=== PATIENT | male | born 1990 | race Caucasian/White ===

== ENCOUNTER 2019-10-23 15:37 | Inpatient (IN) | payer OTHER ==
[2019-10-23] MEDS ORDERED: PROPOFOL 1,000,000 MCG/100 ML VIAL ONE (16:35)
--- NOTE | 2019-10-23 16:35 | PDOC ---
Documentation entered by Myrna Rivas SCRIBE, acting as scribe for Darin Marsh MD. Darin Marsh MD: This documentation has been prepared by the chrisibeRob Ana, SCRIBE, under my direction and personally reviewed by me in its entirety. I confirm that the documentation accurately reflects all work, treatment, procedures, and medical decision making performed by me. Attending Attestation - Resident Resident Name: LexLeo jensen - ED Attending Attestation I have performed the following: I have examined & evaluated the patient, The case was reviewed & discussed with the resident, I agree w/resident's findings & plan, Exceptions are as noted - HPI HPI: 10/23/19 16:14 Patient is a 29 year old male with unknown PMH presents to ED, brought in by friend, for unresponsiveness. Pt was driven to ED by friend, who states that they were smoking marijuana together. Friend is unsure if he took anything else but states that about 15 minutes prior to arrival to ED, pt became unresponsive and difficult to arouse. Pt was encountered in friend's car in ambulance bay, cyanotic, apneic, unresponsive. Pt was pulled from car, lifted onto stretcher, and taken into resus room. Pt was initially bradycardic to 30s, with unobtainable O2 sat. Pt given rescue breaths via BVM. Narcan 0.4mg IV given x2. Repeat vitals after narcan administration - HR 130, O2 sat 100%, RR 18 No improvement in mental status after Narcan administration Pt intubated for airway protection given significant secretions and vomit in mouth. - Physicial Exam PE: 10/23/19 16:15 See resident exam. - Critical Care Time Total Critical Care Time: 60 Critical Care Statement: The care of this patient involved high complexity decision making to prevent further life threatening deterioration of the patient's condition and/or to evaluate & treat vital organ system(s) failure or risk of failure. - Medical Decision Making 10/23/19 16:55 29 M brought in by friend after becoming unresponsive. Suspect Opiate overdose given good response to narcan. - Labs - Tox screen - Intubated on vent - Propofol for sedation - CT head Discharge - Discharge Information Problems reviewed: Yes Clinical Impression/Diagnosis: Apnea for greater than 15 seconds Overdose of opiate or related narcotic Qualifiers: Encounter type: initial encounter Injury intent: undetermined intent Qualified Code(s): T40.604A - Poisoning by unspecified narcotics, undetermined, initial encounter Condition: Guarded - Follow up/Referral - Patient Discharge Instructions - Post Discharge Activity
[2019-10-23] MEDS ORDERED: PROPOFOL 1,000,000 MCG/100 ML VIAL IVPB SCH (16:45)
--- NOTE | 2019-10-23 16:50 | PDOC ---
History of Present Illness - General Chief Complaint: Overdose Stated Complaint: SEIZURE Time Seen by Provider: 10/23/19 16:09 History Source: EMS, Friend Exam Limitations: Clinical Condition, Intubated, Unresponsive - History of Present Illness Initial Comments: 10/23/19 16:42 HPI: 29 yo M brought in unresponsive, apneic bradycardic to 30s, level 1, responded to 0.4 Narcan x2 with return of spontaneous respiration. Patient still unable to protect his airway, vomiting, intubated. Brought in by friend who reported he has a history of opiate abuse, states they smoked marijuana earlier and she was unaware if he took anything else. Past History - Medical History Allergies/Adverse Reactions: Allergies Allergy/AdvReac Type Severity Reaction Status Date / Time No Allergy Information Allergy Verified 10/23/19 15:58 Available Home Medications: Ambulatory Orders NK [No Known Home Medication] 10/23/19 COPD: No - Psycho-Social/Smoking History Smoking History: Smoker current status UNK Have you smoked in the past 12 months: No Information on smoking cessation initiated: No - Substance Abuse Hx (Audit-C & DAST Scrn) How often the patient has a drink containing alcohol: Never Score: In Men: 4 or > Positive; In Women: 3 or > Positive: 0 Screen Result (Pos requires Nsg. Audit-10AR): Negative In the last yr the pt used illegal drug/Rx for NonMed reason: Yes Score: Yes response is considered Positive: 1 Screen Result (Positive result requires Nsg. DAST-10): Positive Review of Systems - Review of Systems Able to Perform ROS?: No (clinical condition) *Physical Exam - Vital Signs Last Vital Signs Temp Pulse Resp BP Pulse Ox 35 L 6 L 164/88 80 L 10/23/19 15:58 10/23/19 15:58 10/23/19 15:58 10/23/19 15:58 - Physical Exam 10/23/19 16:50 Vitals reviewed, apneic, hypoxic, bradycardic on arrival GEN: Critically ill, apneic, required immediate intervention, obese, vomiting s/p narcan HEENT: NCAT, EOMI. Sclera anicteric. No facial asymmetry. Moist mucous membranes. Trachea midline. CV: RRR, S1/S2, no murmurs / rubs / gallops appreciated. LUNG: Not protecting his airway, intubated, with bilateral BS afterwards, concern for aspiration event on arrival. GI: Obese, NTND, +BS, no guarding, no rebound. No masses. EXTREMITIES: 2+ distal pulses. No clubbing / cyanosis / edema. No gross deform ity in any extremity. SKIN: Warm, dry, no rashes appreciated, non-jaundiced. PSYCH: Unable to assess. NEURO: Unable to assess. ED Treatment Course - LABORATORY CBC & Chemistry Diagram: 10/23/19 16:30 10/23/19 16:30 - ADDITIONAL ORDERS Additional order review: Laboratory Results 10/23/19 16:20 POC Glucometer 375 10/23/19 16:20 POC Glucometer 375 - RADIOLOGY Radiology Studies Ordered: Category Date Time Status CXRPORT [CHEST X-RAY PORTABLE*] [RAD] Stat Radiology 10/23/19 16:12 Ordered Medical Decision Making - Medical Decision Making 10/23/19 16:53 29 yo M brought in unresponsive, apneic bradycardic to 30s, level 1, responded to 0.4 Narcan x2 with return of spontaneous respiration. History notable for opiate abuse, response to narcan. Concerning for overdose. Patient intubated for airway protection. - CBC, CMP, Troponin, UTox, Acetaminophen, Salicylates, ABG, Lactic acid - Vent settings per order, appreciate respiratory assistance - Propofol for sedation - Post intubation CXR - EKG - NCHCT Dispo: Patient will require ICU admission 10/23/19 19:16 Patient admitted to ICU. Endorsed to Dr. Gregory who will follow up sedation needs / any clinical changes while in the ED. Discharge - Discharge Information Problems reviewed: Yes Clinical Impression/Diagnosis: Apnea for greater than 15 seconds Overdose of opiate or related narcotic Qualifiers: Encounter type: initial encounter Injury intent: undetermined intent Qualified Code(s): T40.604A - Poisoning by unspecified narcotics, undetermined, initial encounter Condition: Guarded - Admission Yes - Follow up/Referral - Patient Discharge Instructions - Post Discharge Activity
[2019-10-23 17:00] LABS: ARTERIAL BLD GAS O2 SATURATION 83.1 mmHg (95-98); ARTERIAL BLOOD GAS BASE EXCESS -11.6 mmol/L (-2-2); ARTERIAL BLOOD GAS PO2 64.1 mmHg (80-100)
[2019-10-23 17:05] LABS: HEMATOCRIT 46.9 % (35.4-49); HEMOGLOBIN 15.1 GM/dL (11.7-16.9); MCH 28.8 pg (25.7-33.7); MCHC 32.1 g/dl (32.0-35.9); MEAN CELL VOLUME 89.6 fl (80-96); MEAN PLT VOLUME 10.6 fl (7.5-11.1); PLATELET COUNT 257 K/MM3 (134-434); RBC 5.23 M/mm3 (4.00-5.60); RDW 14.9 % (11.9-15.9); WHITE BLOOD COUNT 10.6 K/mm3 (4.0-10.0)
[2019-10-23 17:06] LABS: ALLENS TEST POSITIVE
[2019-10-23 17:07] LABS: ARTERIAL BLOOD GAS pH 7.091 (7.350-7.450); VENT MODE A/C; VENT RATE 14
[2019-10-23] MEDS ORDERED: ROCURONIUM BROMIDE 100 MG/10 ML VIAL ONE (17:16)
[2019-10-23] MEDS ORDERED: MIDAZOLAM IN 0.9 % SOD.CHLORID 1 MG/1 ML PLAST..BAG ONE (17:21)
[2019-10-23 17:31] LABS: ALBUMIN 4.1 g/dl (3.4-5.0); BILIRUBIN,TOTAL 0.4 mg/dL (0.2-1); BLOOD UREA NITROGEN 17.2 mg/dL (7-18); CALCIUM 8.9 mg/dL (8.5-10.1); CREATININE 1.6 mg/dL (0.55-1.3); POTASSIUM 5.3 mmol/L (3.5-5.1); TOT PROT 8.1 g/dl (6.4-8.2)
[2019-10-23] MEDS ORDERED: SODIUM CHLORIDE 0.9% 500 ML INFUS.BAG IV ONE (17:55)
[2019-10-23 17:57] LABS: METHADONE, UR NEGATIVE ng/ml (CUTOFF=300); PHENCYCLIDINE,URINE NEGATIVE ng/ml (CUTOFF=25); URINE BARBITURATES NEGATIVE ng/ml (CUTOFF=200)
[2019-10-23 17:58] LABS: URINE AMPHETAMINES NEGATIVE ng/ml (CUTOFF=500); URINE BENZODIAZEPINES NEGATIVE ng/ml (CUTOFF=200)
[2019-10-23 18:00] LABS: COCAINE, UR POSITIVE ng/ml (CUTOFF=300)
[2019-10-23 18:01] LABS: OPIATES, URI POSITIVE ng/ml (CUTOFF=300)
[2019-10-23] MEDS ORDERED: MIDAZOLAM HCL 5 MG/1 ML Single Dose Vial IVPUSH ONE (18:24)
[2019-10-23] MEDS ORDERED: MIDAZOLAM 100 MG in SODIUM CHLORIDE 100 ML IVPB SCH (18:45)
[2019-10-23] MEDS ORDERED: SODIUM CHLORIDE 1,000 ML IV SCH (20:45)
--- NOTE | 2019-10-23 20:52 | CONSULT ---
Consultation: REQUESTING PROVIDER: Dr. Marsh CONSULT REQUEST: We have been asked to medically evaluate this patient for admission for ICU for opiate overdose. HISTORY OF PRESENT ILLNESS: 29 YO M with H polysubstance use (marijuana, opiate, cocaine) disorder was brought to the ED by his friend for Altered mental response. THe pt's friend endorsed that the patient has a history of opiate use disorder and they smoked marijuana earlier. Pt was unresponsive. In the ED, pt was apniec and bradycardic to 30s. This resolved after 0.4 Narcan X2. Patient was intubated for airway protection. Admitted to the ICU for opiate overdose. REVIEW OF SYSTEMS: Unable to attain because patient is intubated and sedated. PHYSICAL EXAMINATION Vital Signs - 24 hr 10/23/19 10/23/19 10/23/19 15:58 16:05 16:15 Temperature 98.1 F Pulse Rate 35 L Pulse Rate [ 120 H Apical] Respiratory 18 18 20 Rate Blood Pressure 164/88 Blood Pressure 155/75 [Left Arm] O2 Sat by Pulse 98 89 L 88 L Oximetry (%) 10/23/19 10/23/19 10/23/19 16:30 17:00 17:30 Temperature Pulse Rate Pulse Rate [ 125 H 108 H 108 H Apical] Respiratory 18 18 18 Rate Blood Pressure Blood Pressure 160/82 100/72 98/62 [Left Arm] O2 Sat by Pulse 88 L 88 L 95 Oximetry (%) 10/23/19 10/23/19 10/23/19 17:58 18:45 19:16 Temperature Pulse Rate Pulse Rate [ 106 H 98 H Apical] Respiratory 18 18 14 Rate Blood Pressure Blood Pressure 95/70 149/135 H [Left Arm] O2 Sat by Pulse 98 100 Oximetry (%) GENERAL: intubated and sedated HEENT: NC, horizontal scars below his eyebrows, pinpoint pupils, dry mucous membranes LUNGS: Breath sounds equal, clear to auscultation bilaterally. No wheezes, and no crackles. No accessory muscle use. HEART: Regular rate and rhythm, normal S1 and S2 without murmur, rub or gallop. ABDOMEN: obese, Soft, nontender, not distended, normoactive bowel sounds, no guarding UPPER EXTREMITIES: 2+ pulses, warm, well-perfused. No cyanosis. No clubbing. Cap refill <2 seconds. No peripheral edema. Scars in shape of alphabet letters on b/l hands and forearms LOWER EXTREMITIES: 2+ pulses, warm, well-perfused. No calf tenderness. No peripheral edema. Laboratory Results - last 24 hr 10/23/19 10/23/19 10/23/19 16:20 16:30 16:30 WBC RBC Hgb Hct MCV MCH MCHC RDW Plt Count MPV Anticoagulation Therapy Puncture Site Patient Temperature ABG pH ABG pCO2 ABG pO2 ABG HCO3 ABG O2 Sat (Measured) ABG O2 Content ABG Base Excess Huang Test Patient On Oxygen O2 Delivery Device Oxygen Flow Rate Vent Mode Vent Rate Mechanical Rate PEEP Pressure Support Vent Sodium Potassium Chloride Carbon Dioxide Anion Gap BUN Creatinine Est GFR (CKD-EPI)AfAm Est GFR (CKD-EPI)NonAf POC Glucometer 375 Random Glucose Lactic Acid 8.8 H* Calcium Total Bilirubin AST ALT Alkaline Phosphatase Troponin I < 0.02 Total Protein Albumin Opiates Screen Methadone Screen Barbiturate Screen Phencyclidine Screen Ur Amphetamines Screen MDMA (Ecstasy) Screen Benzodiazepines Screen Cocaine Screen U Marijuana (THC) Screen 10/23/19 10/23/19 10/23/19 16:30 16:30 16:40 WBC 10.6 H RBC 5.23 Hgb 15.1 Hct 46.9 MCV 89.6 MCH 28.8 MCHC 32.1 RDW 14.9 Plt Count 257 MPV 10.6 Anticoagulation Therapy No Result Required. Puncture Site Right radial Patient Temperature No Result Required. ABG pH 7.091 L* ABG pCO2 64.80 H ABG pO2 64.1 L ABG HCO3 19.3 L ABG O2 Sat (Measured) 83.1 L ABG O2 Content No Result Required. ABG Base Excess -11.6 L Huang Test Positive Patient On Oxygen Yes O2 Delivery Device Mech vent Oxygen Flow Rate 100 Vent Mode A/c Vent Rate 14 Mechanical Rate No Result Required. PEEP 5.0 Pressure Support Vent 500 Sodium 138 Potassium 5.3 H Chloride 105 Carbon Dioxide 20 L Anion Gap 14 BUN 17.2 Creatinine 1.6 H Est GFR (CKD-EPI)AfAm 66.02 Est GFR (CKD-EPI)NonAf 56.96 POC Glucometer Random Glucose 335 H Lactic Acid Calcium 8.9 Total Bilirubin 0.4 AST 27 ALT 53 Alkaline Phosphatase 108 Troponin I Total Protein 8.1 Albumin 4.1 Opiates Screen Methadone Screen Barbiturate Screen Phencyclidine Screen Ur Amphetamines Screen MDMA (Ecstasy) Screen Benzodiazepines Screen Cocaine Screen U Marijuana (THC) Screen 10/23/19 17:05 WBC RBC Hgb Hct MCV MCH MCHC RDW Plt Count MPV Anticoagulation Therapy Puncture Site Patient Temperature ABG pH ABG pCO2 ABG pO2 ABG HCO3 ABG O2 Sat (Measured) ABG O2 Content ABG Base Excess Huang Test Patient On Oxygen O2 Delivery Device Oxygen Flow Rate Vent Mode Vent Rate Mechanical Rate PEEP Pressure Support Vent Sodium Potassium Chloride Carbon Dioxide Anion Gap BUN Creatinine Est GFR (CKD-EPI)AfAm Est GFR (CKD-EPI)NonAf POC Glucometer Random Glucose Lactic Acid Calcium Total Bilirubin AST ALT Alkaline Phosphatase Troponin I Total Protein Albumin Opiates Screen Positive A* Methadone Screen Negative Barbiturate Screen Negative Phencyclidine Screen Negative Ur Amphetamines Screen Negative MDMA (Ecstasy) Screen Negative Benzodiazepines Screen Negative Cocaine Screen Positive A* U Marijuana (THC) Screen Positive A* Active Medications Generic Name Dose Route Start Last Admin Trade Name Freq PRN Reason Stop Dose Admin Chlorhexidine Gluconate 1 applic 10/23/19 22:00 Hibiclens For Decolonization - TP HS JAILYN Heparin Sodium (Porcine) 5,000 unit 10/23/19 22:00 Heparin - SQ TID JAILYN Propofol 1,000,000 mcg in 100 mls @ 3.538 mls/hr 10/23/19 16:45 10/23/19 19:01 Diprivan - IVPB 0 mcg/kg/min TITR JAILYN 0 mls/hr Titration Protocol 5 MCG/KG/MIN Midazolam HCl 100 mg/ Sodium 100 mls @ 1 mls/hr 10/23/19 18:45 10/23/19 19:00 Chloride IVPB 10 mg/hr TITR JAILYN 10 mls/hr Titration Protocol 1 MG/HR Ceftriaxone Sodium 1 gm/ 50 mls @ 100 mls/hr 10/23/19 20:30 Dextrose IVPB DAILY JAILYN Doxycycline Hyclate 100 mg/ 100 mls @ 100 mls/hr 10/23/19 22:00 Dextrose IVPB BID JAILYN Sodium Chloride 1,000 mls @ 75 mls/hr 10/23/19 20:45 Normal Saline - IV 10/24/19 06:00 ASDIR JAILYN Insulin Aspart 1 vial 10/23/19 22:00 Novolog Vial Sliding Scale - SQ ACHS JAILYN Protocol Mupirocin 1 applic 10/23/19 22:00 Bactroban Ointment (For Decolonization) - NS 10/28/19 21:59 BID [facility] Pantoprazole Sodium 40 mg 10/24/19 10:00 Protonix Iv IVPUSH DAILY [facility] ASSESSMENT/PLAN: 29 YO M with PMH polysubstance use (marijuana, opiate, cocaine) disorder was brought to the ED by his friend for Altered mental response. Admitted to the ICU for opiate overdose. #Neuro intubated and sedated no acute issues Pulm -Volume A/C: rate 18, TV 450, PEEP 5, FIO2 100%, Plateau 22. Sedated with midazolam 10 mg/h -ABG: pH 7.091, PCO2 64.8, pO2 64.1, HCO3 19.3 -F/u ABG Cardio -EKG: Sinus tachycardia, 128 bpm, QTC 443, MI interval 154 -trop <0.02 -Utox show cocaine. Avoid betablockers to prevent unopposed alpha ID -utox +: opiates, cocaine, marijuana -afebrile, WBC 10.6 -CXR: congestive changes and some atelectatic/infiltrative findings with minimal pleural fluid -for suspected CAP ceftriaxone 1 gm daily & doxycyline 100 mg IVPB BID. Doxycyline because QTC is borderline at 443. -f/u blood culture -f/u UA #HemeOnc WBC elevated at 10.6. Likely 2/2 CAP PNA will trend Renal -Cr 1.6 -NS@75 ml/h -Marlys -lactic acid 8.8. f/u lactic acid -f/u CK Addiction -utox +: opiates, cocaine, marijuana -f/u Dr Zavala consult #GI -pantoprazole 40 mg IV push daily Endo glucose elevated at 335. ISS/BGM #FEN NS@75 ml/h monitor lytes NPO #DVT PPX heparin 5000 TID SQ due to patient's elevated Cr #Lines Marlys (10/22) #DISPO maintain ICU Dispo: We will continue to follow the patient. Thank you for this consultative opportunity. ATTENDING PHYSICIAN STATEMENT I saw and evaluated the patient. I reviewed the resident's note and discussed the case with the resident. I agree with the resident's findings and plan as documented. SUBJECTIVE: OBJECTIVE: ASSESSMENT AND PLAN:
[2019-10-23] MEDS ORDERED: HEPARIN NA (PORCINE) 5,000 UNITS/ML 1ML VIAL ONE (21:05)
[2019-10-23] MEDS ORDERED: CEFTRIAXONE 1 GM/50 ML BAG ONE (21:06)
[2019-10-23] MEDS ORDERED: DOXYCYCLINE HYCLATE 100 MG VIAL ONE (21:06)
[2019-10-23] MEDS: DOXYCYCLINE INJECTION 100 MG in DEXTROSE 5%-WATER - 100 ML IVPB SCH (21:28)
[2019-10-23] MEDS: HEPARIN NA (PORCINE) 5,000 UNITS/ML 1ML VIAL SQ SCH (21:28)
[2019-10-23] MEDS: CEFTRIAXONE 1 GM in DEXTROSE 5%-WATER - 50 ML IVPB SCH (21:28)
[2019-10-23] MEDS: INSULIN SLIDING SCALE (NOVOLOG) 1 VIAL SQ SCH (21:28)
[2019-10-23] MEDS ORDERED: CHLORHEXIDINE GLUCONATE 4% CLEANSER FOR DECOLONIZATION TP SCH (22:00)
[2019-10-23] MEDS ORDERED: MUPIROCIN 2% TOPICAL OINTMENT FOR DECOLONIZATION NS SCH (22:00)
[2019-10-23 22:29] LABS: EPI CELLS 35 /uL (0-25.1); HYALINE CASTS 5 /uL (0-3.1); PH,URINE 5.5 (5.0-8.0); URINE APPEARANCE CLEAR; URINE BACTERIA 231 /uL (0-1359); URINE BILIRUBIN NEGATIVE (NEGATIVE); URINE COLOR YELLOW; URINE GLUCOSE (UA) 3+ (NEGATIVE); URINE KETONE NEGATIVE (NEGATIVE); URINE LEUK ESTERASE NEGATIVE (NEGATIVE); URINE NITRITE NEGATIVE (NEGATIVE); URINE PROTEIN 3+ (NEGATIVE); URINE UROBILINOGEN 0.2 mg/dL (0.2-1.0); URINE WBC 18 /uL (0-25.8)
[2019-10-23 22:31] LABS: ALLENS TEST POSITIVE; ARTERIAL BLD GAS O2 SATURATION 97.3 mmHg (95-98); ARTERIAL BLOOD GAS BASE EXCESS -4.1 mmol/L (-2-2); ARTERIAL BLOOD GAS PO2 108.7 mmHg (80-100); ARTERIAL BLOOD GAS pH 7.271 (7.350-7.450)
[2019-10-23 22:32] LABS: VENT MODE A/C; VENT RATE 18
[2019-10-23 22:34] LABS: URINE RBC 19.7 /uL (0-23.9)
[2019-10-24] MEDS ORDERED: MIDAZOLAM IN 0.9 % SOD.CHLORID 1 MG/1 ML PLAST..BAG ONE (01:15)
[2019-10-24] MEDS ORDERED: FENTANYL IVPB 500 MCG/100 ML BAG IVPB SCH ×2 (05:30→06:30)
[2019-10-24] MEDS ORDERED: fentaNYL CITRATE 250 MCG/5 ML VIAL ONE (05:47)
[2019-10-24] MEDS: HEPARIN NA (PORCINE) 5,000 UNITS/ML 1ML VIAL SQ SCH ×3 (06:29→21:42)
[2019-10-24 07:17] LABS: ARTERIAL BLD GAS O2 SATURATION 95.8 mmHg (95-98); ARTERIAL BLOOD GAS BASE EXCESS -2.4 mmol/L (-2-2); ARTERIAL BLOOD GAS PO2 86.4 mmHg (80-100); ARTERIAL BLOOD GAS pH 7.321 (7.350-7.450)
[2019-10-24 07:36] LABS: ALLENS TEST POSITIVE
[2019-10-24 07:37] LABS: VENT MODE A/C; VENT RATE 18
--- NOTE | 2019-10-24 08:02 | PDOC ---
*Physical Exam - Vital Signs Last Vital Signs Temp Pulse Resp BP Pulse Ox 98.6 F 98 H 22 H 103/49 L 100 10/24/19 06:01 10/24/19 06:01 10/24/19 06:54 10/24/19 06:01 10/24/19 06:54 <Jeannine Hazel - Last Filed: 10/24/19 09:01> - Vital Signs Last Vital Signs Temp Pulse Resp BP Pulse Ox 98.6 F 98 H 22 H 103/49 L 100 10/24/19 06:01 10/24/19 06:01 10/24/19 06:54 10/24/19 06:01 10/24/19 06:54 <Michael Acevedo - Last Filed: 10/24/19 11:45> ED Treatment Course - LABORATORY CBC & Chemistry Diagram: 10/24/19 07:15 10/24/19 07:15 - ADDITIONAL ORDERS Additional order review: 10/23/19 10/23/19 16:30 16:20 RBC 5.23 MCV 89.6 MCHC 32.1 RDW 14.9 MPV 10.6 POC Glucometer 375 - Medications Given in the ED: ED Medications Discontinued Medications Generic Name Dose Route Start Last Admin Trade Name Freq PRN Reason Stop Dose Admin Sodium Chloride 1,000 mls @ 75 mls/hr 10/23/19 20:45 10/23/19 21:28 Normal Saline - IV 10/24/19 06:00 75 mls/hr ASDIR JAILYN Administration Fentanyl 500 mcg in 100 mls @ 0.2 mls/hr 10/24/19 06:30 10/24/19 05:50 Sublimaze Ivpb IVPB 5 mcg/hr TITR JAILYN 1 mls/hr Administration Protocol 1 MCG/HR Midazolam HCl 5 mg 10/23/19 18:24 10/23/19 18:26 Versed - IVPUSH 10/23/19 18:25 5 mg ONCE ONE Administration Sodium Chloride 1,000 ml 10/23/19 17:55 10/23/19 18:22 Normal Saline - IV 10/23/19 17:56 1,000 ml ONCE ONE Administration <Jeannine Hazel - Last Filed: 10/24/19 09:01> - LABORATORY CBC & Chemistry Diagram: 10/24/19 07:15 10/24/19 07:15 - ADDITIONAL ORDERS Additional order review: 10/23/19 10/23/19 16:30 16:20 RBC 5.23 MCV 89.6 MCHC 32.1 RDW 14.9 MPV 10.6 POC Glucometer 375 - Medications Given in the ED: ED Medications Discontinued Medications Generic Name Dose Route Start Last Admin Trade Name Cedrick PRN Reason Stop Dose Admin Sodium Chloride 1,000 mls @ 75 mls/hr 10/23/19 20:45 10/23/19 21:28 Normal Saline - IV 10/24/19 06:00 75 mls/hr ASDIR JAILYN Administration Fentanyl 500 mcg in 100 mls @ 0.2 mls/hr 10/24/19 06:30 10/24/19 05:50 Sublimaze Ivpb IVPB 5 mcg/hr TITR JAILYN 1 mls/hr Administration Protocol 1 MCG/HR Midazolam HCl 5 mg 10/23/19 18:24 10/23/19 18:26 Versed - IVPUSH 10/23/19 18:25 5 mg ONCE ONE Administration Sodium Chloride 1,000 ml 10/23/19 17:55 10/23/19 18:22 Normal Saline - IV 10/23/19 17:56 1,000 ml ONCE ONE Administration <Michael Acevedo - Last Filed: 10/24/19 11:45> Medical Decision Making - Critical Care Time Total Critical Care Time (minutes): 30 Critical Care Statement: The care of this patient involved high complexity decision making to prevent further life threatening deterioration of the patient's condition and/or to evaluate & treat vital organ system(s) failure or risk of failure. - Medical Decision Making 10/24/19 09:02 Pt signed out as intubated for airway protection, pending ICU admission. On my assessment, the patient is awake on the vent, but calm and cooperative. Oxygen saturation 100 % on 50% FIO2. Patient changed to CPAP, which he appears to be tolerating. Will start titrating down his sedation and continue to monitor. Will likely extubate if continues to tolerate CPAP/ <Jeannine Hazel - Last Filed: 10/24/19 09:01> - Medical Decision Making 10/23/19 16:53 29 yo M brought in unresponsive, apneic bradycardic to 30s, level 1, responded to 0.4 Narcan x2 with return of spontaneous respiration. History notable for opiate abuse, response to narcan. Concerning for overdose. Patient intubated for airway protection. - CBC, CMP, Troponin, UTox, Acetaminophen, Salicylates, ABG, Lactic acid - Vent settings per order, appreciate respiratory assistance - Propofol for sedation - Post intubation CXR - EKG - NCHCT Dispo: Patient will require ICU admission 10/23/19 19:16 Patient admitted to ICU. Endorsed to Dr. Gregory who will follow up sedation needs / any clinical changes while in the ED. 10/24/19 08:03 - Labs notable for: -ABG pH 7.091 (19:59), 7.271 (23:59), and 7.321 (07:59) -Lactate 8.8 (19:59), 1.2 (23:59) -pCO2 64.8 (19:59), 59.1 (23:59), and 48.1 (07:59) - Patient currently awake, alert, and communicating via writing. He's spontaneously breathing on CPAP. FiO2 lowered to 40% with O2 sat 100% - extubated by ICU team and is admitted <Michael Acevedo - Last Filed: 10/24/19 11:45> Discharge <Jeannine Hazel - Last Filed: 10/24/19 09:01> - Discharge Information Problems reviewed: Yes - Admission Yes <Michael Acevedo - Last Filed: 10/24/19 11:45> - Discharge Information Clinical Impression/Diagnosis: Apnea for greater than 15 seconds Overdose of opiate or related narcotic Qualifiers: Encounter type: initial encounter Injury intent: undetermined intent Qualified Code(s): T40.604A - Poisoning by unspecified narcotics, undetermined, initial encounter Condition: Guarded
[2019-10-24 08:25] LABS: BASO % 0.2 % (0-2.0); EOS % 0.1 % (0-4.5); HEMATOCRIT 40.8 % (35.4-49); HEMOGLOBIN 13.2 GM/dL (11.7-16.9); LYMPH % 14.8 % (8-40); MCH 28.1 pg (25.7-33.7); MCHC 32.4 g/dl (32.0-35.9); MEAN CELL VOLUME 86.9 fl (80-96); MEAN PLT VOLUME 9.6 fl (7.5-11.1); MONO % 4.9 % (3.8-10.2); PLATELET COUNT 196 K/MM3 (134-434); RDW 15.5 % (11.9-15.9); WHITE BLOOD COUNT 11.4 K/mm3 (4.0-10.0)
[2019-10-24 08:41] LABS: CHLORIDE 112 mmol/L (98-107); POTASSIUM 4.2 mmol/L (3.5-5.1); SODIUM 143 mmol/L (136-145)
[2019-10-24 08:47] LABS: ANION GAP 6 MMOL/L (8-16); BLOOD UREA NITROGEN 16.4 mg/dL (7-18); CALCIUM 8.7 mg/dL (8.5-10.1); CO2 25 mmol/L (21-32); CREATININE 1.1 mg/dL (0.55-1.3); GLUCOSE,RANDOM 108 mg/dL (74-106); MAGNESIUM 2.4 mg/dL (1.8-2.4); PHOSPHOROUS 3.5 mg/dL (2.5-4.9)
[2019-10-24] MEDS: INSULIN SLIDING SCALE (NOVOLOG) 1 VIAL SQ SCH ×4 (09:08→21:43)
[2019-10-24] MEDS ORDERED: PANTOPRAZOLE SODIUM 40 MG VIAL IVPUSH SCH (10:00)
[2019-10-24] MEDS ORDERED: DOXYCYCLINE HYCLATE 100 MG VIAL ONE ×2 (11:23→21:29)
[2019-10-24] MEDS ORDERED: CEFTRIAXONE 1 GM/50 ML BAG ONE (11:23)
[2019-10-24] MEDS ORDERED: PANTOPRAZOLE SODIUM 40 MG VIAL ONE (11:24)
--- NOTE | 2019-10-24 11:41 | PN ---
Physical Exam: SUBJECTIVE: Patient was seen and examined today. The patient was alert and following commands. The patient was on cpap on the ventilator and pulling adequate tidal volumes. The patient was subsequently extubated and currently saturating 100% on venti mask. The patient is tolerating oral secretions. Of note, the patient had moderate amounts of pulmonary secretions suctioned prior to extubation. Patient states he feels well. OBJECTIVE: Vital Signs Period Temp Pulse Resp BP Sys/Roland Pulse Ox Last 24 Hr 98.1 F-98.6 F 35-125 6-26 93-164/49-135 80-100 GENERAL: The patient is awake, alert, and fully oriented, in no acute distress. HEAD: Normal with no signs of trauma. EYES: PERRL, extraocular movements intact, sclera anicteric, conjunctiva clear. No ptosis. ENT: Ears normal, nares patent, oropharynx clear without exudates, moist mucous membranes. NECK: Trachea midline, full range of motion, supple. LUNGS: Decreased Breath sounds at the bases bilaterally, no wheezes, no crackles, no accessory muscle use. HEART: Regular rate and rhythm, S1, S2 without murmur, rub or gallop. ABDOMEN: Soft, nontender, nondistended, normoactive bowel sounds, no guarding, no rebound, no hepatosplenomegaly, no masses. EXTREMITIES: 2+ pulses, warm, well-perfused, no edema. NEUROLOGICAL: Unable to assess at this time. Following commands. Normal speech, gait not observed. PSYCH: Normal mood, normal affect. SKIN: Warm, dry, normal turgor, no rashes or lesions noted Laboratory Results - last 24 hr 10/23/19 10/23/19 10/23/19 16:20 16:30 16:30 WBC RBC Hgb Hct MCV MCH MCHC RDW Plt Count MPV Absolute Neuts (auto) Neutrophils % Lymphocytes % Monocytes % Eosinophils % Basophils % Nucleated RBC % Anticoagulation Therapy Puncture Site Patient Temperature ABG pH ABG pCO2 ABG pO2 ABG HCO3 ABG O2 Sat (Measured) ABG O2 Content ABG Base Excess Huang Test Patient On Oxygen O2 Delivery Device Oxygen Flow Rate Vent Mode Vent Rate Mechanical Rate PEEP Pressure Support Vent Sodium Potassium Chloride Carbon Dioxide Anion Gap BUN Creatinine Est GFR (CKD-EPI)AfAm Est GFR (CKD-EPI)NonAf POC Glucometer 375 Random Glucose Lactic Acid 8.8 H* Calcium Phosphorus Magnesium Total Bilirubin AST ALT Alkaline Phosphatase Creatine Kinase Creatine Kinase Index CK-MB (CK-2) Troponin I < 0.02 Total Protein Albumin Urine Color Urine Appearance Urine pH Ur Specific [place] Urine Protein Urine Glucose (UA) Urine Ketones Urine Blood Urine Nitrite Urine Bilirubin Urine Urobilinogen Ur Leukocyte Esterase Urine WBC (Auto) Urine RBC (Auto) Urine Casts (Auto) U Epithel Cells (Auto) Urine Bacteria (Auto) Salicylates Opiates Screen Methadone Screen Acetaminophen Barbiturate Screen Phencyclidine Screen Ur Amphetamines Screen MDMA (Ecstasy) Screen Benzodiazepines Screen Cocaine Screen U Marijuana (THC) Screen 10/23/19 10/23/19 10/23/19 16:30 16:30 16:40 WBC 10.6 H RBC 5.23 Hgb 15.1 Hct 46.9 MCV 89.6 MCH 28.8 MCHC 32.1 RDW 14.9 Plt Count 257 MPV 10.6 Absolute Neuts (auto) Neutrophils % Lymphocytes % Monocytes % Eosinophils % Basophils % Nucleated RBC % Anticoagulation Therapy No Result Required. Puncture Site Right radial Patient Temperature No Result Required. ABG pH 7.091 L* ABG pCO2 64.80 H ABG pO2 64.1 L ABG HCO3 19.3 L ABG O2 Sat (Measured) 83.1 L ABG O2 Content No Result Required. ABG Base Excess -11.6 L Huang Test Positive Patient On Oxygen Yes O2 Delivery Device Mech vent Oxygen Flow Rate 100 Vent Mode A/c Vent Rate 14 Mechanical Rate No Result Required. PEEP 5.0 Pressure Support Vent 500 Sodium 138 Potassium 5.3 H Chloride 105 Carbon Dioxide 20 L Anion Gap 14 BUN 17.2 Creatinine 1.6 H Est GFR (CKD-EPI)AfAm 66.02 Est GFR (CKD-EPI)NonAf 56.96 POC Glucometer Random Glucose 335 H Lactic Acid Calcium 8.9 Phosphorus Magnesium Total Bilirubin 0.4 AST 27 ALT 53 Alkaline Phosphatase 108 Creatine Kinase Creatine Kinase Index CK-MB (CK-2) Troponin I Total Protein 8.1 Albumin 4.1 Urine Color Urine Appearance Urine pH Ur Specific [place] Urine Protein Urine Glucose (UA) Urine Ketones Urine Blood Urine Nitrite Urine Bilirubin Urine Urobilinogen Ur Leukocyte Esterase Urine WBC (Auto) Urine RBC (Auto) Urine Casts (Auto) U Epithel Cells (Auto) Urine Bacteria (Auto) Salicylates Opiates Screen Methadone Screen Acetaminophen Barbiturate Screen Phencyclidine Screen Ur Amphetamines Screen MDMA (Ecstasy) Screen Benzodiazepines Screen Cocaine Screen U Marijuana (THC) Screen 10/23/19 10/23/19 10/23/19 17:05 21:19 22:10 WBC RBC Hgb Hct MCV MCH MCHC RDW Plt Count MPV Absolute Neuts (auto) Neutrophils % Lymphocytes % Monocytes % Eosinophils % Basophils % Nucleated RBC % Anticoagulation Therapy Puncture Site Patient Temperature ABG pH ABG pCO2 ABG pO2 ABG HCO3 ABG O2 Sat (Measured) ABG O2 Content ABG Base Excess Huang Test Patient On Oxygen O2 Delivery Device Oxygen Flow Rate Vent Mode Vent Rate Mechanical Rate PEEP Pressure Support Vent Sodium Potassium Chloride Carbon Dioxide Anion Gap BUN Creatinine Est GFR (CKD-EPI)AfAm Est GFR (CKD-EPI)NonAf POC Glucometer 99 Random Glucose Lactic Acid Calcium Phosphorus Magnesium Total Bilirubin AST ALT Alkaline Phosphatase Creatine Kinase Creatine Kinase Index CK-MB (CK-2) Troponin I Total Protein Albumin Urine Color Yellow Urine Appearance Clear Urine pH 5.5 Ur Specific [place] 1.017 Urine Protein 3+ H Urine Glucose (UA) 3+ H Urine Ketones Negative Urine Blood 3+ H Urine Nitrite Negative Urine Bilirubin Negative Urine Urobilinogen 0.2 Ur Leukocyte Esterase Negative Urine WBC (Auto) 18 Urine RBC (Auto) 19.7 Urine Casts (Auto) 5 U Epithel Cells (Auto) 35 Urine Bacteria (Auto) 231 Salicylates Opiates Screen Positive A* Methadone Screen Negative Acetaminophen Barbiturate Screen Negative Phencyclidine Screen Negative Ur Amphetamines Screen Negative MDMA (Ecstasy) Screen Negative Benzodiazepines Screen Negative Cocaine Screen Positive A* U Marijuana (THC) Screen Positive A* 10/23/19 10/23/19 10/23/19 22:20 22:55 22:55 WBC RBC Hgb Hct MCV MCH MCHC RDW Plt Count MPV Absolute Neuts (auto) Neutrophils % Lymphocytes % Monocytes % Eosinophils % Basophils % Nucleated RBC % Anticoagulation Therapy No Result Required. Puncture Site Right radial Patient Temperature No Result Required. ABG pH 7.271 L ABG pCO2 51.90 H ABG pO2 108.7 H ABG HCO3 23.4 ABG O2 Sat (Measured) 97.3 ABG O2 Content No Result Required. ABG Base Excess -4.1 L Huang Test Positive Patient On Oxygen No Result Required. O2 Delivery Device No Result Required. Oxygen Flow Rate 60 Vent Mode A/c Vent Rate 18 Mechanical Rate No Result Required. PEEP 5.0 Pressure Support Vent No Result Required. Sodium Potassium Chloride Carbon Dioxide Anion Gap BUN Creatinine Est GFR (CKD-EPI)AfAm Est GFR (CKD-EPI)NonAf POC Glucometer Random Glucose Lactic Acid Calcium Phosphorus Magnesium Total Bilirubin AST ALT Alkaline Phosphatase Creatine Kinase 2794 H Creatine Kinase Index 0.5 CK-MB (CK-2) 16.6 H Troponin I Total Protein Albumin Urine Color Urine Appearance Urine pH Ur Specific [place] Urine Protein Urine Glucose (UA) Urine Ketones Urine Blood Urine Nitrite Urine Bilirubin Urine Urobilinogen Ur Leukocyte Esterase Urine WBC (Auto) Urine RBC (Auto) Urine Casts (Auto) U Epithel Cells (Auto) Urine Bacteria (Auto) Salicylates 2.1 L Opiates Screen Methadone Screen Acetaminophen < 2.0 Barbiturate Screen Phencyclidine Screen Ur Amphetamines Screen MDMA (Ecstasy) Screen Benzodiazepines Screen Cocaine Screen U Marijuana (THC) Screen 10/23/19 10/24/19 10/24/19 22:55 06:45 07:15 WBC 11.4 H RBC 4.70 Hgb 13.2 Hct 40.8 MCV 86.9 MCH 28.1 MCHC 32.4 RDW 15.5 Plt Count 196 D MPV 9.6 Absolute Neuts (auto) 9.1 H Neutrophils % 80.0 Lymphocytes % 14.8 Monocytes % 4.9 Eosinophils % 0.1 Basophils % 0.2 Nucleated RBC % 0 Anticoagulation Therapy No Result Required. Puncture Site Right radial Patient Temperature No Result Required. ABG pH 7.321 L ABG pCO2 48.10 H ABG pO2 86.4 ABG HCO3 24.3 ABG O2 Sat (Measured) 95.8 ABG O2 Content No Result Required. ABG Base Excess -2.4 L Huang Test Positive Patient On Oxygen Yes O2 Delivery Device Vent Oxygen Flow Rate 50% Vent Mode A/c Vent Rate 18 Mechanical Rate Yes PEEP 5.0 Pressure Support Vent 450 Sodium Potassium Chloride Carbon Dioxide Anion Gap BUN Creatinine Est GFR (CKD-EPI)AfAm Est GFR (CKD-EPI)NonAf POC Glucometer Random Glucose Lactic Acid 1.2 Calcium Phosphorus Magnesium Total Bilirubin AST ALT Alkaline Phosphatase Creatine Kinase Creatine Kinase Index CK-MB (CK-2) Troponin I Total Protein Albumin Urine Color Urine Appearance Urine pH Ur Specific [place] Urine Protein Urine Glucose (UA) Urine Ketones Urine Blood Urine Nitrite Urine Bilirubin Urine Urobilinogen Ur Leukocyte Esterase Urine WBC (Auto) Urine RBC (Auto) Urine Casts (Auto) U Epithel Cells (Auto) Urine Bacteria (Auto) Salicylates Opiates Screen Methadone Screen Acetaminophen Barbiturate Screen Phencyclidine Screen Ur Amphetamines Screen MDMA (Ecstasy) Screen Benzodiazepines Screen Cocaine Screen U Marijuana (THC) Screen 10/24/19 07:15 WBC RBC Hgb Hct MCV MCH MCHC RDW Plt Count MPV Absolute Neuts (auto) Neutrophils % Lymphocytes % Monocytes % Eosinophils % Basophils % Nucleated RBC % Anticoagulation Therapy Puncture Site Patient Temperature ABG pH ABG pCO2 ABG pO2 ABG HCO3 ABG O2 Sat (Measured) ABG O2 Content ABG Base Excess Huang Test Patient On Oxygen O2 Delivery Device Oxygen Flow Rate Vent Mode Vent Rate Mechanical Rate PEEP Pressure Support Vent Sodium 143 Potassium 4.2 Chloride 112 H Carbon Dioxide 25 Anion Gap 6 L BUN 16.4 Creatinine 1.1 Est GFR (CKD-EPI)AfAm 103.85 Est GFR (CKD-EPI)NonAf 89.61 POC Glucometer Random Glucose 108 H Lactic Acid Calcium 8.7 Phosphorus 3.5 Magnesium 2.4 Total Bilirubin AST ALT Alkaline Phosphatase Creatine Kinase < 7 L Creatine Kinase Index CK-MB (CK-2) Troponin I 0.04 Total Protein Albumin Urine Color Urine Appearance Urine pH Ur Specific [place] Urine Protein Urine Glucose (UA) Urine Ketones Urine Blood Urine Nitrite Urine Bilirubin Urine Urobilinogen Ur Leukocyte Esterase Urine WBC (Auto) Urine RBC (Auto) Urine Casts (Auto) U Epithel Cells (Auto) Urine Bacteria (Auto) Salicylates Opiates Screen Methadone Screen Acetaminophen Barbiturate Screen Phencyclidine Screen Ur Amphetamines Screen MDMA (Ecstasy) Screen Benzodiazepines Screen Cocaine Screen U Marijuana (THC) Screen Active Medications Generic Name Dose Route Start Last Admin Trade Name Freq PRN Reason Stop Dose Admin Chlorhexidine Gluconate 1 applic 10/23/19 22:00 Hibiclens For Decolonization - TP HS JAILYN Heparin Sodium (Porcine) 5,000 unit 10/23/19 22:00 10/24/19 06:29 Heparin - SQ 5,000 unit TID JAILYN Administration Propofol 1,000,000 mcg in 100 mls @ 3.538 mls/hr 10/23/19 16:45 10/24/19 05:55 Diprivan - IVPB 0 mcg/kg/min TITR JAILYN 0 mls/hr Titration Protocol 5 MCG/KG/MIN Midazolam HCl 100 mg/ Sodium 100 mls @ 1 mls/hr 10/23/19 18:45 10/23/19 19:00 Chloride IVPB 10 mg/hr TITR JAILYN 10 mls/hr Titration Protocol 1 MG/HR Ceftriaxone Sodium 1 gm/ 50 mls @ 100 mls/hr 10/23/19 20:30 10/23/19 21:28 Dextrose IVPB 100 mls/hr DAILY JAILYN Administration Doxycycline Hyclate 100 mg/ 100 mls @ 100 mls/hr 10/23/19 22:00 10/23/19 21:28 Dextrose IVPB 100 mls/hr BID JAILYN Administration Insulin Aspart 1 vial 10/23/19 22:00 10/24/19 09:08 Novolog Vial Sliding Scale - SQ Not Given ACHS JAILYN Protocol Mupirocin 1 applic 10/23/19 22:00 Bactroban Ointment (For Decolonization) - NS 10/28/19 21:59 BID JAILYN Pantoprazole Sodium 40 mg 10/24/19 10:00 Protonix Iv IVPUSH DAILY [facility] ASSESSMENT/PLAN: 29 yo M with a hx of heroin abuse and overdose presented initially with heroin overdose with subsequent intubation for airway protection. #Neuro off sedation extubated A&Ox3 Pulm extubated patient is currently on 40% venti mask 8L with 100% saturation pulmonary secretion noted on suction currently treated for potential PNA (on doxycycline and rocephin) continue to wean off oxygen as tolerated Cardio -EKG: Sinus tachycardia, 128 bpm, QTC 443, MO interval 154 -trop <0.02 -Utox show cocaine. Avoid betablockers to prevent unopposed alpha ID -utox +: opiates, cocaine, marijuana -afebrile, WBC 10.6 -CXR: congestive changes and some atelectatic/infiltrative findings with minimal pleural fluid -CAP ceftriaxone 1 gm daily & doxycyline 100 mg IVPB BID. Doxycyline because QTC is borderline at 443. -f/u blood culture -UA shows 18 WBC and bacteria. Follow up on culture. currently patient has no symptoms #HemeOnc WBC elevated at 10.6-->11.4. Likely 2/2 CAP PNA vs/and potential UTI? will trend Renal -Cr 1.6-->1.1. downtrending. Will continue to monitor -Encourage PO intake -DC dominguez - lactic acid downtrending to 1.2 -CK in the 2700s now <7 s/p fluid hydration Addiction -utox +: opiates, cocaine, marijuana -f/u Dr Zavala consult #GI -Encourage feeds Endo glucose elevated at 335. ISS/BGM #FEN Encourage PO intake monitor lytes Begin diet #DVT PPX heparin 5000 TID SQ due to patient's elevated Cr #Lines DC dominguez (10/24/2019) #DISPO Can go to med/surg Dispo: We will continue to follow the patient. Thank you for this consultative opportunity. Visit type - Emergency Visit Emergency Visit: Yes ED Registration Date: 10/23/19 Care time: The patient presented to the Emergency Department on the above date and was hospitalized for further evaluation of their emergent condition. - New Patient This patient is new to me today: No - Critical Care Critical Care patient: Yes Total Critical Care Time (in minutes): 36 Critical Care Statement: The care of this patient involved high complexity decision making to prevent further life threatening deterioration of the patient's condition and/or to evaluate & treat vital organ system(s) failure or risk of failure. ATTENDING PHYSICIAN STATEMENT I saw and evaluated the patient. I reviewed the resident's note and discussed the case with the resident. I agree with the resident's findings and plan as documented. SUBJECTIVE: OBJECTIVE: ASSESSMENT AND PLAN:
[2019-10-24] MEDS: DOXYCYCLINE INJECTION 100 MG in DEXTROSE 5%-WATER - 100 ML IVPB SCH (11:54)
[2019-10-24] MEDS: CEFTRIAXONE 1 GM in DEXTROSE 5%-WATER - 50 ML IVPB SCH (13:12)
[2019-10-24 13:13] LABS: ALBUMIN 3.7 g/dl (3.4-5.0); ALK PHOS 81 U/L (45-117); BILIRUBIN,TOTAL 0.7 mg/dL (0.2-1); SGOT/AST 71 U/L (15-37); SGPT/ALT 51 U/L (13-61); TOT PROT 6.7 g/dl (6.4-8.2)
--- NOTE | 2019-10-24 13:42 | PN ---
Progress Note (short form) - Note Progress Note: TRANSFER NOTE Pt seen and evaluated. Pt stable to for downgrade to floors. 29 yo M w/ morbid obesity and opiate abuse, is brought into the ED for being unresponsive, apneic and bradycardic to 30s. Pt was administered 0.4 Narcan x2 and responded with return of spontaneous respiration. History notable for opiate abuse, response to narcan. He was admitted to the ICU for Acute respiratory failure 2/ to drug overdose and was intubated for airway protection. Pt returned to baseline and was placed on cpap on the ventilator and pulling adequate tidal volumes. The patient was subsequently extubated and currently saturating 100% on venti mask. The patient is tolerating oral secretions. Of note, the patient had moderate amounts of pulmonary secretions suctioned prior to extubation. Patient states he feels well and is saturating well on 3.5 L NC.
--- NOTE | 2019-10-24 15:27 | EKG ---
Test Reason : Blood Pressure : / mmHG Vent. Rate : 128 BPM Atrial Rate : 128 BPM P-R Int : 154 ms QRS Dur : 100 ms QT Int : 304 ms P-R-T Axes : 048 101 004 degrees QTc Int : 443 ms SINUS TACHYCARDIA RIGHTWARD AXIS BORDERLINE ECG NO PREVIOUS ECGS AVAILABLE Confirmed by MIGUEL RING MD ([id number]) on 10/24/2019 3:27:32 PM Referred By: Confirmed By:MIGUEL RING MD
--- NOTE | 2019-10-24 15:50 | PN ---
Teaching Attending Note Name of Resident: Vasquez Villaseñor ATTENDING PHYSICIAN STATEMENT I saw and evaluated the patient. I reviewed the resident's note and discussed the case with the resident. I agree with the resident's findings and plan as documented. SUBJECTIVE: Pt seen and examined in the ED. Intubated, awake, following commands. Placed on CPAP/PS with good respiratory effort and RSBI so subsequently extubated to ventimask. OBJECTIVE: Vital Signs Period Temp Pulse Resp BP Sys/Roland Pulse Ox Last 24 Hr 98.1 F-98.6 F 35-125 6-26 93-164/49-135 80-100 Intake & Output 10/21/19 10/22/19 10/23/19 10/24/19 23:59 23:59 23:59 23:59 Output Total 100 Balance -100 Weight 117.934 kg Gen: extubated Heart: RRR Lung: decreased breath sounds at the bases Abd: soft, nontender Ext: no edema CBC, BMP 10/24/19 07:15 10/24/19 07:15 Laboratory Tests 10/23/19 17:05 Opiates Screen Positive A* Cocaine Screen Positive A* U Marijuana (THC) Screen Positive A* ABG Results ABG pH 7.321 (7.350-7.450) L 10/24/19 06:45 ABG HCO3 24.3 mmol/L (22-27) 10/24/19 06:45 ABG O2 Sat (Measured) 95.8 mmHg (95-98) 10/24/19 06:45 ABG O2 Content No Result Required. 10/24/19 06:45 ABG Base Excess -2.4 mmol/L (-2-2) L 10/24/19 06:45 Active Medications Heparin Sodium (Porcine) (Heparin -) 5,000 unit SQ TID [facility] Last Admin: 10/24/19 14:02 Dose: 5,000 unit Documented by: Ceftriaxone Sodium 1 gm/ (Dextrose) 50 mls @ 100 mls/hr IVPB DAILY [facility] Last Admin: 10/24/19 13:12 Dose: 100 mls/hr Documented by: Doxycycline Hyclate 100 mg/ (Dextrose) 100 mls @ 100 mls/hr IVPB BID [facility] Last Admin: 10/24/19 11:54 Dose: 100 mls/hr Documented by: Insulin Aspart (Novolog Vial Sliding Scale -) 1 vial SQ ACHS [facility]; Protocol Last Admin: 10/24/19 14:02 Dose: Not Given Documented by: Pantoprazole Sodium (Protonix Iv) 40 mg IVPUSH DAILY [facility] Last Admin: 10/24/19 11:53 Dose: 40 mg Documented by: ASSESSMENT AND PLAN: Acute Hypoxic and Hypercapneic Respiratory Failure Opiate Overdose Pneumonia likely Aspiration Polysubstance Abuse - pt extubated - continue antibiotics - f/u cultures - O2 to keep Spo2 >90% - addiction medicine eval - aspiration precautions - DVT prophylaxis - pt extubated and stable, can monitor on floor
[2019-10-24 19:52] VITALS: BMI 45.1
[2019-10-24] MEDS ORDERED: PT OWN MED DRAWER 7, Y5N ONE (21:21)
[2019-10-24] MEDS ORDERED: DEXTROSE 5%-WATER 100 ML IVPB ONE (21:29)
[2019-10-24] MEDS: DOXYCYCLINE INJECTION 100 MG in DEXTROSE 5%-WATER 100 ML IVPB SCH (21:42)
[2019-10-25] MEDS: HEPARIN NA (PORCINE) 5,000 UNITS/ML 1ML VIAL SQ SCH ×3 (06:22→22:25)
[2019-10-25] MEDS: INSULIN SLIDING SCALE (NOVOLOG) 1 VIAL SQ SCH ×4 (06:23→22:25)
--- NOTE | 2019-10-25 08:03 | PN ---
Progress Note, Physician History of Present Illness: PULMONARY ALERT,COMFORTABLE,-SOB,-COUGH - Current Medication List Current Medications: Active Medications Heparin Sodium (Porcine) (Heparin -) 5,000 unit SQ TID [facility] Last Admin: 10/25/19 06:22 Dose: 5,000 unit Documented by: Ceftriaxone Sodium 1 gm/ (Dextrose) 50 mls @ 100 mls/hr IVPB DAILY [facility] Doxycycline Hyclate 100 mg/ (Dextrose) 100 mls @ 100 mls/hr IVPB BID [facility] Last Admin: 10/24/19 21:42 Dose: 100 mls/hr Documented by: Insulin Aspart (Novolog Vial Sliding Scale -) 1 vial SQ ACHS [facility]; Protocol Last Admin: 10/25/19 06:23 Dose: Not Given Documented by: - Objective Vital Signs: Vital Signs Temperature 97.8 F 10/25/19 06:30 Pulse Rate 85 10/25/19 06:30 Respiratory Rate 20 10/25/19 06:30 Blood Pressure 139/93 10/25/19 06:30 O2 Sat by Pulse Oximetry (%) 98 10/25/19 06:30 Constitutional: Yes: Well Nourished, Calm, Obese Eyes: Yes: WNL HENT: Yes: WNL Neck: Yes: WNL Cardiovascular: Yes: Regular Rate and Rhythm, S1, S2 Respiratory: Yes: CTA Bilaterally Gastrointestinal: Yes: Normal Bowel Sounds, Soft Extremities: Yes: WNL Edema: No Labs: CBC, BMP 10/24/19 07:15 Assessment/Plan ASSESSMENT AND PLAN: Acute Hypoxic and Hypercapneic Respiratory Failure resolved Opiate Overdose Pneumonia likely Aspiration Polysubstance Abuse - antibiotics - O2 to keep Spo2 >90% - addiction medicine eval - aspiration precautions - DVT prophylaxis - chest x-ray DR BURLESON
[2019-10-25] MEDS ORDERED: DOXYCYCLINE HYCLATE 100 MG VIAL ONE ×2 (09:09→21:04)
[2019-10-25] MEDS ORDERED: cefTRIAXone SODIUM 1 GM VIAL ONE (09:09)
[2019-10-25] MEDS ORDERED: DEXTROSE 5%-WATER 100 ML IVPB ONE ×2 (09:09→21:04)
[2019-10-25] MEDS ORDERED: DEXTROSE 5%-WATER - 50 ML IVPB ONE (09:09)
[2019-10-25 09:18] LABS: CALCIUM 8.5 mg/dL (8.5-10.1); CREATININE 0.7 mg/dL (0.55-1.3); POTASSIUM 3.8 mmol/L (3.5-5.1)
[2019-10-25] MEDS: CEFTRIAXONE 1 GM in DEXTROSE 5%-WATER - 50 ML IVPB SCH (09:46)
[2019-10-25] MEDS: DOXYCYCLINE INJECTION 100 MG in DEXTROSE 5%-WATER 100 ML IVPB SCH ×2 (10:23→22:23)
--- NOTE | 2019-10-25 10:31 | CONSULT ---
Admitting History and Physical - Admission History of Present Illness: 29 YO M with H polysubstance use (marijuana, opiate, cocaine) disorder was brought to the ED by his friend for Altered mental response. THe pt's friend endorsed that the patient has a history of opiate use disorder and they smoked marijuana earlier. Pt was unresponsive. In the ED, pt was apniec and bradycardic to 30s. This resolved after 0.4 Narcan X2. Patient was intubated for airway protection. Admitted to the ICU for opiate overdose. Selected Entries 10/24/19 10/24/19 10/25/19 15:37 18:42 02:00 Diet Tolerated Well Eating (Feeding Independent ) Ability Supper 100% Temperature 99.3 F Pulse Rate 91 H Blood Pressure 145/82 O2 Sat by Pulse 93 L Oximetry (%) 10/25/19 06:30 Diet Tolerated Eating (Feeding ) Ability Supper Temperature 97.8 F Pulse Rate 85 Blood Pressure 139/93 O2 Sat by Pulse 98 Oximetry (%) Laboratory Tests 10/23/19 10/23/19 10/24/19 16:30 22:55 07:15 WBC 10.6 H 11.4 H COVID-19 ([facility]) Not detected A&Ox3, complained of slight throat and neck pain from intubation. Pt tolerated clear diet, no coughing noted. Sp/sw orders placed History Source: Patient, Medical Record Limitations to Obtaining History: No Limitations - Smoking History Smoking history: Smoker current status UNK Have you smoked in the past 12 months: No History - Admission Reason For Visit: DRUG OVERDOSE - Diagnostics X-ray: Report Reviewed CT Scan: Report Reviewed - General Mental Status: Alert and Oriented, Awake and Alert, Able to Follow Commands Attention: Intact Ability to Follow Directions: Excellent Head/Neck Control: WFL - Hearing Hearing: Normal Hearing Aide: No With Patient: No Speech Evaluation - Communication Primary Language: MAURITANIAN Communication: Yes: Within Normal Limits - Speech Production Able to Make Needs Known: Yes: WNL Intelligibility: Yes: WNL - Speech Characteristics Voice Loudness: Normal Voice Pitch: Yes: Normal Voice Phonatory-based Quality: Yes: Normal Speech Pattern: Normal Speech Clarity: < 100% Nasal Resonance: Nasal Emission (intermittent. Upon questioning, pt with h/o GIAN, untreated presently as he lost his CPAP machine during a move) Articulation: Yes: Precise Rate of Speech: Intact - Language/Auditory Comprehension Follows: Yes: 2 Stage Simple Commands Observation: Able to respond to yes/no queries: Yes, Comprehends Conversational Speech: Yes - Language/Verbal Expression Able to Respond to Simple Queries: Yes: WNL Able to Communicate Wants and Needs: Yes: WNL Functional Communication Status: Yes: WNL - Memory/Perception jail Memory: Yes: WNL Short Term Memory: Yes: WNL - Swallow Evaluation/Bedside Assessment Current Nutritional Intake: Clear Liquids Oral Secretions: Yes: WFL Dentition: Yes: Adequate Facial Symmetry at Rest: Symmetrical Facial Symmetry on Retraction: Symmetrical Sensation: Normal Against Resistance Opening: Normal Against Resistance Closing: Normal Pucker Lips: Normal Smile: Normal Lingual Movement: Normal, Symmetric Lingual Speed of Movement: Normal Lingual Movement Strgth Against Opposition: Normal Lingual Movement Characteristics: Normal Laryngeal Elevation: WFL Laryngeal Movement: Able to Palpate Rate of Intake: WFL Bolus Size: WFL Labial Seal: WFL Chewing: WFL Oral Prep Time: WFL A-P Transit: WFL Pocketing: None Timing of Swallow: WFL Coughing/Throat Clear: No Change in Voice: No Recommendations - Speech Evaluation, Impression/Plan Impression: Speech precise, occasional nasal emission. h/o sleep apnea, presently untreated. Swallowing intact. Cognition intact - Dysphagia Impressions/Plan Swallowing Skills: WF Dysphagia Impressions: No Impairment *Silent aspiration: cannot be R/O at bedside Recommendations: Pulmonary Consult (r/o GIAN) - Recommendations Diet Consistency: Regular Medication Administration: Whole with water Liquids: Thin Liquids
[2019-10-25] MEDS ORDERED: BENZOCAINE/MENTH/CETYLPYRD CL 1 EACH LOZENGE MM PRN (11:41)
--- NOTE | 2019-10-25 12:01 | CONSULT ---
[facility] Reason for Current Admission/Consult: Pt admitted 10/23/19 post opioid overdose. Referred by:: Dr. Bennett Pendleton - History History of Present Illness: Patient is a 29 year old male with unknown PMH presents to ED, brought in by friend, for unresponsiveness. Pt was driven to ED by friend, who states that they were smoking marijuana together. Friend is unsure if he took anything else but states that about 15 minutes prior to arrival to ED, pt became unresponsive and difficult to arouse. Pt was encountered in friend's car in ambulance bay, cyanotic, apneic, unresponsive. Pt was pulled from car, lifted onto stretcher, and taken into resus room. Pt was initially bradycardic to 30s, with unobtainable O2 sat. Pt given rescue breaths via BVM. Narcan 0.4mg IV given x2. Repeat vitals after narcan administration - HR 130, O2 sat 100%, RR 18 No improvement in mental status after Narcan administration Pt intubated for airway protection given significant secretions and vomit in mouth. Review of notes intubated/extubated notes describe pt as stable - History Source History Provided By: Medical Record - Alcohol/Substance Use Hx Substance Use: Yes - Significant Medical Findings: Home Medications Medication Instructions Recorded NK [No Known Home Medication] 10/23/19 Laboratory Tests 10/23/19 10/23/19 10/23/19 16:20 16:30 16:30 WBC RBC Hgb Hct MCV MCH MCHC RDW Plt Count MPV Absolute Neuts (auto) Neutrophils % Lymphocytes % Monocytes % Eosinophils % Basophils % Nucleated RBC % Anticoagulation Therapy Puncture Site Patient Temperature ABG pH ABG pCO2 ABG pO2 ABG HCO3 ABG O2 Sat (Measured) ABG O2 Content ABG Base Excess Huang Test Patient On Oxygen O2 Delivery Device Oxygen Flow Rate Vent Mode Vent Rate Mechanical Rate PEEP Pressure Support Vent Sodium Potassium Chloride Carbon Dioxide Anion Gap BUN Creatinine Est GFR (CKD-EPI)AfAm Est GFR (CKD-EPI)NonAf POC Glucometer 375 Random Glucose Hemoglobin A1c % Lactic Acid 8.8 H* Calcium Phosphorus Magnesium Total Bilirubin AST ALT Alkaline Phosphatase Creatine Kinase Creatine Kinase Index CK-MB (CK-2) Troponin I < 0.02 Total Protein Albumin Urine Color Urine Appearance Urine pH Ur Specific Douglas Urine Protein Urine Glucose (UA) Urine Ketones Urine Blood Urine Nitrite Urine Bilirubin Urine Urobilinogen Ur Leukocyte Esterase Urine WBC (Auto) Urine RBC (Auto) Urine Casts (Auto) U Epithel Cells (Auto) Urine Bacteria (Auto) Salicylates Opiates Screen Methadone Screen Acetaminophen Barbiturate Screen Phencyclidine Screen Ur Amphetamines Screen MDMA (Ecstasy) Screen Benzodiazepines Screen Cocaine Screen U Marijuana (THC) Screen COVID-19 ([facility]) 10/23/19 10/23/19 10/23/19 16:30 16:30 16:40 WBC 10.6 H RBC 5.23 Hgb 15.1 Hct 46.9 MCV 89.6 MCH 28.8 MCHC 32.1 RDW 14.9 Plt Count 257 MPV 10.6 Absolute Neuts (auto) Neutrophils % Lymphocytes % Monocytes % Eosinophils % Basophils % Nucleated RBC % Anticoagulation Therapy No Result Required. Puncture Site Right radial Patient Temperature No Result Required. ABG pH 7.091 L* ABG pCO2 64.80 H ABG pO2 64.1 L ABG HCO3 19.3 L ABG O2 Sat (Measured) 83.1 L ABG O2 Content No Result Required. ABG Base Excess -11.6 L Huang Test Positive Patient On Oxygen Yes O2 Delivery Device Mech vent Oxygen Flow Rate 100 Vent Mode A/c Vent Rate 14 Mechanical Rate No Result Required. PEEP 5.0 Pressure Support Vent 500 Sodium 138 Potassium 5.3 H Chloride 105 Carbon Dioxide 20 L Anion Gap 14 BUN 17.2 Creatinine 1.6 H Est GFR (CKD-EPI)AfAm 66.02 Est GFR (CKD-EPI)NonAf 56.96 POC Glucometer Random Glucose 335 H Hemoglobin A1c % Lactic Acid Calcium 8.9 Phosphorus Magnesium Total Bilirubin 0.4 AST 27 ALT 53 Alkaline Phosphatase 108 Creatine Kinase Creatine Kinase Index CK-MB (CK-2) Troponin I Total Protein 8.1 Albumin 4.1 Urine Color Urine Appearance Urine pH Ur Specific Douglas Urine Protein Urine Glucose (UA) Urine Ketones Urine Blood Urine Nitrite Urine Bilirubin Urine Urobilinogen Ur Leukocyte Esterase Urine WBC (Auto) Urine RBC (Auto) Urine Casts (Auto) U Epithel Cells (Auto) Urine Bacteria (Auto) Salicylates Opiates Screen Methadone Screen Acetaminophen Barbiturate Screen Phencyclidine Screen Ur Amphetamines Screen MDMA (Ecstasy) Screen Benzodiazepines Screen Cocaine Screen U Marijuana (THC) Screen COVID-19 ([facility]) 10/23/19 10/23/19 10/23/19 17:05 21:19 22:10 WBC RBC Hgb Hct MCV MCH MCHC RDW Plt Count MPV Absolute Neuts (auto) Neutrophils % Lymphocytes % Monocytes % Eosinophils % Basophils % Nucleated RBC % Anticoagulation Therapy Puncture Site Patient Temperature ABG pH ABG pCO2 ABG pO2 ABG HCO3 ABG O2 Sat (Measured) ABG O2 Content ABG Base Excess Huang Test Patient On Oxygen O2 Delivery Device Oxygen Flow Rate Vent Mode Vent Rate Mechanical Rate PEEP Pressure Support Vent Sodium Potassium Chloride Carbon Dioxide Anion Gap BUN Creatinine Est GFR (CKD-EPI)AfAm Est GFR (CKD-EPI)NonAf POC Glucometer 99 Random Glucose Hemoglobin A1c % Lactic Acid Calcium Phosphorus Magnesium Total Bilirubin AST ALT Alkaline Phosphatase Creatine Kinase Creatine Kinase Index CK-MB (CK-2) Troponin I Total Protein Albumin Urine Color Yellow Urine Appearance Clear Urine pH 5.5 Ur Specific Douglas 1.017 Urine Protein 3+ H Urine Glucose (UA) 3+ H Urine Ketones Negative Urine Blood 3+ H Urine Nitrite Negative Urine Bilirubin Negative Urine Urobilinogen 0.2 Ur Leukocyte Esterase Negative Urine WBC (Auto) 18 Urine RBC (Auto) 19.7 Urine Casts (Auto) 5 U Epithel Cells (Auto) 35 Urine Bacteria (Auto) 231 Salicylates Opiates Screen Positive A* Methadone Screen Negative Acetaminophen Barbiturate Screen Negative Phencyclidine Screen Negative Ur Amphetamines Screen Negative MDMA (Ecstasy) Screen Negative Benzodiazepines Screen Negative Cocaine Screen Positive A* U Marijuana (THC) Screen Positive A* COVID-19 ([facility]) 10/23/19 10/23/19 10/23/19 22:20 22:55 22:55 WBC RBC Hgb Hct MCV MCH MCHC RDW Plt Count MPV Absolute Neuts (auto) Neutrophils % Lymphocytes % Monocytes % Eosinophils % Basophils % Nucleated RBC % Anticoagulation Therapy No Result Required. Puncture Site Right radial Patient Temperature No Result Required. ABG pH 7.271 L ABG pCO2 51.90 H ABG pO2 108.7 H ABG HCO3 23.4 ABG O2 Sat (Measured) 97.3 ABG O2 Content No Result Required. ABG Base Excess -4.1 L Huang Test Positive Patient On Oxygen No Result Required. O2 Delivery Device No Result Required. Oxygen Flow Rate 60 Vent Mode A/c Vent Rate 18 Mechanical Rate No Result Required. PEEP 5.0 Pressure Support Vent No Result Required. Sodium Potassium Chloride Carbon Dioxide Anion Gap BUN Creatinine Est GFR (CKD-EPI)AfAm Est GFR (CKD-EPI)NonAf POC Glucometer Random Glucose Hemoglobin A1c % Lactic Acid Calcium Phosphorus Magnesium Total Bilirubin AST ALT Alkaline Phosphatase Creatine Kinase Creatine Kinase Index CK-MB (CK-2) Troponin I Total Protein Albumin Urine Color Urine Appearance Urine pH Ur Specific Douglas Urine Protein Urine Glucose (UA) Urine Ketones Urine Blood Urine Nitrite Urine Bilirubin Urine Urobilinogen Ur Leukocyte Esterase Urine WBC (Auto) Urine RBC (Auto) Urine Casts (Auto) U Epithel Cells (Auto) Urine Bacteria (Auto) Salicylates 2.1 L Opiates Screen Methadone Screen Acetaminophen < 2.0 Barbiturate Screen Phencyclidine Screen Ur Amphetamines Screen MDMA (Ecstasy) Screen Benzodiazepines Screen Cocaine Screen U Marijuana (THC) Screen COVID-19 ([facility]) Not detected 10/23/19 10/23/19 10/24/19 22:55 22:55 06:45 WBC RBC Hgb Hct MCV MCH MCHC RDW Plt Count MPV Absolute Neuts (auto) Neutrophils % Lymphocytes % Monocytes % Eosinophils % Basophils % Nucleated RBC % Anticoagulation Therapy No Result Required. Puncture Site Right radial Patient Temperature No Result Required. ABG pH 7.321 L ABG pCO2 48.10 H ABG pO2 86.4 ABG HCO3 24.3 ABG O2 Sat (Measured) 95.8 ABG O2 Content No Result Required. ABG Base Excess -2.4 L Huang Test Positive Patient On Oxygen Yes O2 Delivery Device Vent Oxygen Flow Rate 50% Vent Mode A/c Vent Rate 18 Mechanical Rate Yes PEEP 5.0 Pressure Support Vent 450 Sodium Potassium Chloride Carbon Dioxide Anion Gap BUN Creatinine Est GFR (CKD-EPI)AfAm Est GFR (CKD-EPI)NonAf POC Glucometer Random Glucose Hemoglobin A1c % Lactic Acid 1.2 Calcium Phosphorus Magnesium Total Bilirubin AST ALT Alkaline Phosphatase Creatine Kinase 2794 H Creatine Kinase Index 0.5 CK-MB (CK-2) 16.6 H Troponin I Total Protein Albumin Urine Color Urine Appearance Urine pH Ur Specific Douglas Urine Protein Urine Glucose (UA) Urine Ketones Urine Blood Urine Nitrite Urine Bilirubin Urine Urobilinogen Ur Leukocyte Esterase Urine WBC (Auto) Urine RBC (Auto) Urine Casts (Auto) U Epithel Cells (Auto) Urine Bacteria (Auto) Salicylates Opiates Screen Methadone Screen Acetaminophen Barbiturate Screen Phencyclidine Screen Ur Amphetamines Screen MDMA (Ecstasy) Screen Benzodiazepines Screen Cocaine Screen U Marijuana (THC) Screen COVID-19 ([facility]) 10/24/19 10/24/19 10/24/19 07:15 07:15 17:49 WBC 11.4 H RBC 4.70 Hgb 13.2 Hct 40.8 MCV 86.9 MCH 28.1 MCHC 32.4 RDW 15.5 Plt Count 196 D MPV 9.6 Absolute Neuts (auto) 9.1 H Neutrophils % 80.0 Lymphocytes % 14.8 Monocytes % 4.9 Eosinophils % 0.1 Basophils % 0.2 Nucleated RBC % 0 Anticoagulation Therapy Puncture Site Patient Temperature ABG pH ABG pCO2 ABG pO2 ABG HCO3 ABG O2 Sat (Measured) ABG O2 Content ABG Base Excess Huang Test Patient On Oxygen O2 Delivery Device Oxygen Flow Rate Vent Mode Vent Rate Mechanical Rate PEEP Pressure Support Vent Sodium 143 Potassium 4.2 Chloride 112 H Carbon Dioxide 25 Anion Gap 6 L BUN 16.4 Creatinine 1.1 Est GFR (CKD-EPI)AfAm 103.85 Est GFR (CKD-EPI)NonAf 89.61 POC Glucometer 138 Random Glucose 108 H Hemoglobin A1c % Lactic Acid Calcium 8.7 Phosphorus 3.5 Magnesium 2.4 Total Bilirubin 0.7 AST 71 H ALT 51 Alkaline Phosphatase 81 Creatine Kinase < 7 L Creatine Kinase Index CK-MB (CK-2) Troponin I 0.04 Total Protein 6.7 Albumin 3.7 Urine Color Urine Appearance Urine pH Ur Specific Douglas Urine Protein Urine Glucose (UA) Urine Ketones Urine Blood Urine Nitrite Urine Bilirubin Urine Urobilinogen Ur Leukocyte Esterase Urine WBC (Auto) Urine RBC (Auto) Urine Casts (Auto) U Epithel Cells (Auto) Urine Bacteria (Auto) Salicylates Opiates Screen Methadone Screen Acetaminophen Barbiturate Screen Phencyclidine Screen Ur Amphetamines Screen MDMA (Ecstasy) Screen Benzodiazepines Screen Cocaine Screen U Marijuana (THC) Screen COVID-19 ([facility]) 10/24/19 10/25/19 10/25/19 21:41 06:00 06:22 WBC RBC Hgb Hct MCV MCH MCHC RDW Plt Count MPV Absolute Neuts (auto) Neutrophils % Lymphocytes % Monocytes % Eosinophils % Basophils % Nucleated RBC % Anticoagulation Therapy Puncture Site Patient Temperature ABG pH ABG pCO2 ABG pO2 ABG HCO3 ABG O2 Sat (Measured) ABG O2 Content ABG Base Excess Huang Test Patient On Oxygen O2 Delivery Device Oxygen Flow Rate Vent Mode Vent Rate Mechanical Rate PEEP Pressure Support Vent Sodium Potassium Chloride Carbon Dioxide Anion Gap BUN Creatinine Est GFR (CKD-EPI)AfAm Est GFR (CKD-EPI)NonAf POC Glucometer 107 102 Random Glucose Hemoglobin A1c % 5.8 Lactic Acid Calcium Phosphorus Magnesium Total Bilirubin AST ALT Alkaline Phosphatase Creatine Kinase Creatine Kinase Index CK-MB (CK-2) Troponin I Total Protein Albumin Urine Color Urine Appearance Urine pH Ur Specific Douglas Urine Protein Urine Glucose (UA) Urine Ketones Urine Blood Urine Nitrite Urine Bilirubin Urine Urobilinogen Ur Leukocyte Esterase Urine WBC (Auto) Urine RBC (Auto) Urine Casts (Auto) U Epithel Cells (Auto) Urine Bacteria (Auto) Salicylates Opiates Screen Methadone Screen Acetaminophen Barbiturate Screen Phencyclidine Screen Ur Amphetamines Screen MDMA (Ecstasy) Screen Benzodiazepines Screen Cocaine Screen U Marijuana (THC) Screen COVID-19 ([facility]) 10/25/19 07:40 WBC RBC Hgb Hct MCV MCH MCHC RDW Plt Count MPV Absolute Neuts (auto) Neutrophils % Lymphocytes % Monocytes % Eosinophils % Basophils % Nucleated RBC % Anticoagulation Therapy Puncture Site Patient Temperature ABG pH ABG pCO2 ABG pO2 ABG HCO3 ABG O2 Sat (Measured) ABG O2 Content ABG Base Excess Huang Test Patient On Oxygen O2 Delivery Device Oxygen Flow Rate Vent Mode Vent Rate Mechanical Rate PEEP Pressure Support Vent Sodium 140 Potassium 3.8 Chloride 107 Carbon Dioxide 27 Anion Gap 6 L BUN 8.0 Creatinine 0.7 Est GFR (CKD-EPI)AfAm 146.77 Est GFR (CKD-EPI)NonAf 126.64 POC Glucometer Random Glucose 97 Hemoglobin A1c % Lactic Acid Calcium 8.5 Phosphorus Magnesium Total Bilirubin AST ALT Alkaline Phosphatase Creatine Kinase Creatine Kinase Index CK-MB (CK-2) Troponin I Total Protein Albumin Urine Color Urine Appearance Urine pH Ur Specific Douglas Urine Protein Urine Glucose (UA) Urine Ketones Urine Blood Urine Nitrite Urine Bilirubin Urine Urobilinogen Ur Leukocyte Esterase Urine WBC (Auto) Urine RBC (Auto) Urine Casts (Auto) U Epithel Cells (Auto) Urine Bacteria (Auto) Salicylates Opiates Screen Methadone Screen Acetaminophen Barbiturate Screen Phencyclidine Screen Ur Amphetamines Screen MDMA (Ecstasy) Screen Benzodiazepines Screen Cocaine Screen U Marijuana (THC) Screen COVID-19 ([facility]) Home Medication List Medication Instructions Recorded Confirmed Type NK [No Known Home Medication] 10/23/19 10/23/19 History Active Medications Generic Name Dose Route Start Last Admin Trade Name Freq PRN Reason Stop Dose Admin Benzocaine/Menthol 1 each 10/25/19 11:41 Cepacol Lozenge - MM PRN PRN SORE THROAT Heparin Sodium (Porcine) 5,000 unit 10/24/19 22:00 10/25/19 06:22 Heparin - SQ 5,000 unit TID JAILYN Administration Ceftriaxone Sodium 1 gm/ 50 mls @ 100 mls/hr 10/25/19 10:00 10/25/19 09:46 Dextrose IVPB 100 mls/hr DAILY JAILYN Administration Doxycycline Hyclate 100 mg/ 100 mls @ 100 mls/hr 10/24/19 22:00 10/25/19 10:23 Dextrose IVPB 100 mls/hr BID JAILYN Administration Insulin Aspart 1 vial 10/24/19 16:30 10/25/19 06:23 Novolog Vial Sliding Scale - SQ Not Given ACHS JAILYN Protocol Vital Signs Temperature 97.7 F 10/25/19 10:00 Pulse Rate 76 10/25/19 10:00 Respiratory Rate 20 10/25/19 10:00 Blood Pressure 152/94 10/25/19 10:00 O2 Sat by Pulse Oximetry (%) 96 10/25/19 10:00 Assessment Plan - Diagnosis (1) Overdose of opiate or related narcotic Status: Acute Qualifiers: Encounter type: initial encounter Injury intent: undetermined intent Qualified Code(s): T40.604A - Poisoning by unspecified narcotics, undetermined, initial encounter - Plan Plan: 29 yo brought to ED unresponsive after smoking marijuana with friend. Tox positive for opiates, THC Tx in ED with Narcan Intubated/extubated. Notes state pt stable. No COWS/signs of withdrawal documented Imp 1. Opioid overdose Plan 1. Outpatient treatment to be arranged by Case Management
--- NOTE | 2019-10-25 14:50 | PN ---
Physical Exam: SUBJECTIVE: Patient seen and examined at the bedside. He is ambulating around his room, has a wet cough but denies any shortness of breath. tolerating room air. complaining of sore throat. patient declining to go to rehab, states he does not want to be referred because he can stop on his own. He used heroin in the past (nasal only), never injected. OBJECTIVE: chest CT ordered by pulmonary advance diet to regular/thin liquids per swallow/speech recommendations ----- Patient is a 29 year old male with a past medical history of heroin abuse. He was brought into [facility] on 10/23/2019 with a heroin overdose and was intubated in the ICU for airway protection. In the ED he was given Narcan 0.4mg IV given x2 without improvement. Period Temp Pulse Resp BP Sys/Roland Pulse Ox Last 24 Hr 97.7 F-99.3 F 76-105 20-20 125-152/68-94 90-98 GENERAL: The patient is awake, alert, and fully oriented, in no acute distress. HEAD: Normal with no signs of trauma. EYES: PERRL, extraocular movements intact, sclera anicteric, conjunctiva clear. No ptosis. ENT: Ears normal, nares patent, oropharynx clear without exudates, moist mucous membranes. NECK: Trachea midline, full range of motion, supple. LUNGS: Breath sounds equal, clear to auscultation bilaterally, no wheezes, tolerating room air HEART: Regular rate and rhythm ABDOMEN: Soft, nontender, nondistended, normoactive bowel sounds EXTREMITIES: 2 no edema. NEUROLOGICAL: Normal speech, gait steady PSYCH: Normal mood, normal affect. SKIN: Warm, dry, normal turgor, no rashes or lesions noted Laboratory Results - last 24 hr 10/23/19 10/24/19 10/24/19 22:55 17:49 21:41 Sodium Potassium Chloride Carbon Dioxide Anion Gap BUN Creatinine Est GFR (CKD-EPI)AfAm Est GFR (CKD-EPI)NonAf POC Glucometer 138 107 Random Glucose Hemoglobin A1c % Calcium COVID-19 ([facility]SON) Not detected 10/25/19 10/25/19 10/25/19 06:00 06:22 07:40 Sodium 140 Potassium 3.8 Chloride 107 Carbon Dioxide 27 Anion Gap 6 L BUN 8.0 Creatinine 0.7 Est GFR (CKD-EPI)AfAm 146.77 Est GFR (CKD-EPI)NonAf 126.64 POC Glucometer 102 Random Glucose 97 Hemoglobin A1c % 5.8 Calcium 8.5 COVID-19 (SAMSON) 10/25/19 12:16 Sodium Potassium Chloride Carbon Dioxide Anion Gap BUN Creatinine Est GFR (CKD-EPI)AfAm Est GFR (CKD-EPI)NonAf POC Glucometer 111 Random Glucose Hemoglobin A1c % Calcium COVID-19 (SAMSON) Active Medications Generic Name Dose Route Start Last Admin Trade Name Freq PRN Reason Stop Dose Admin Benzocaine/Menthol 1 each 10/25/19 11:41 Cepacol Lozenge - MM PRN PRN SORE THROAT Heparin Sodium (Porcine) 5,000 unit 10/24/19 22:00 10/25/19 06:22 Heparin - SQ 5,000 unit TID JAILYN Administration Ceftriaxone Sodium 1 gm/ 50 mls @ 100 mls/hr 10/25/19 10:00 10/25/19 09:46 Dextrose IVPB 100 mls/hr DAILY JAILYN Administration Doxycycline Hyclate 100 mg/ 100 mls @ 100 mls/hr 10/24/19 22:00 10/25/19 10:23 Dextrose IVPB 100 mls/hr BID JAILYN Administration Insulin Aspart 1 vial 10/24/19 16:30 10/25/19 12:30 Novolog Vial Sliding Scale - SQ Not Given ACHS JAILYN Protocol ASSESSMENT/PLAN: Problem List - Problems (1) Heroin abuse Assessment/Plan: Intubated in the ED for airway protection patient with a history of heroin abuse (smoking) and admitted for heroin overdose. he is refusing rehab or help for his addiction, states he will stop on his own no signs of withdrawal on exam for CT chest per pulmonary Code(s): F11.10 - OPIOID ABUSE, UNCOMPLICATED (2) Overdose of opiate or related narcotic Assessment/Plan: addiction medicine following patient refusing rehab referral Code(s): T40.601A - POISONING BY UNSP NARCOTICS, ACCIDENTAL, INIT Qualifiers: Encounter type: initial encounter Injury intent: undetermined intent Qualified Code(s): T40.604A - Poisoning by unspecified narcotics, undetermined, initial encounter (3) DVT prophylaxis Assessment/Plan: ambulation Code(s): Z29.9 - ENCOUNTER FOR PROPHYLACTIC MEASURES, UNSPECIFIED Visit type - Emergency Visit Emergency Visit: Yes ED Registration Date: 10/23/19 Care time: The patient presented to the Emergency Department on the above date and was hospitalized for further evaluation of their emergent condition. - New Patient This patient is new to me today: Yes Date on this admission: 10/25/19 - Critical Care Critical Care patient: No - Discharge Referral Referred to [facility] Med [facility].C[facility] No COWS - Scale Resting Pulse: 0= NM 80 or Below Sweatin= No chills or Flushing Restless Observation: 0= Sits Still Pupil Size: 0= Normal to Room Light Bone or Joint Aches: 0= None Runny Nose/ Eye Tearin= Nasal Congestion GI Upset > 30mins: 0= None Tremor Observation: 0= None Yawning Observation: 0= None Anxiety or Irritability: 0= None Goose Flesh Skin: 0=Smooth Skin COWS Score: 1
[2019-10-25] MEDS ORDERED: PT OWN MED DRAWER 7, Y5N ONE (15:09)
[2019-10-25] MEDS: ACETAMINOPHEN 325 MG TABLET (FP) PO PRN ×2 (17:15→22:22)
[2019-10-26] MEDS: HEPARIN NA (PORCINE) 5,000 UNITS/ML 1ML VIAL SQ SCH ×2 (06:11→14:35)
[2019-10-26] MEDS: INSULIN SLIDING SCALE (NOVOLOG) 1 VIAL SQ SCH ×2 (06:11→11:48)
--- NOTE | 2019-10-26 06:43 | PN ---
Progress Note, Physician History of Present Illness: PULMONARY ALERT,COMFORTABLE,-SOB,-COUGH - Current Medication List Current Medications: Active Medications Acetaminophen (Tylenol -) 650 mg PO Q6H PRN PRN Reason: PAIN LEVEL 6-10 Last Admin: 10/25/19 22:22 Dose: 650 mg Documented by: Benzocaine/Menthol (Cepacol Lozenge -) 1 each MM PRN PRN PRN Reason: SORE THROAT Last Admin: 10/25/19 15:14 Dose: 1 each Documented by: Heparin Sodium (Porcine) (Heparin -) 5,000 unit SQ TID [facility] Last Admin: 10/26/19 06:11 Dose: 5,000 unit Documented by: Ceftriaxone Sodium 1 gm/ (Dextrose) 50 mls @ 100 mls/hr IVPB DAILY [facility] Last Admin: 10/25/19 09:46 Dose: 100 mls/hr Documented by: Doxycycline Hyclate 100 mg/ (Dextrose) 100 mls @ 100 mls/hr IVPB BID [facility] Last Admin: 10/25/19 22:23 Dose: 100 mls/hr Documented by: Insulin Aspart (Novolog Vial Sliding Scale -) 1 vial SQ ACHS [facility]; Protocol Last Admin: 10/26/19 06:11 Dose: Not Given Documented by: - Objective Vital Signs: Vital Signs Temperature 97.8 F 10/26/19 06:00 Pulse Rate 68 10/26/19 06:00 Respiratory Rate 20 10/26/19 06:00 Blood Pressure 145/90 10/26/19 06:00 O2 Sat by Pulse Oximetry (%) 96 10/26/19 06:00 Constitutional: Yes: Calm, Obese Eyes: Yes: WNL HENT: Yes: WNL Neck: Yes: WNL Cardiovascular: Yes: Regular Rate and Rhythm, S1, S2 Respiratory: Yes: CTA Bilaterally Gastrointestinal: Yes: Normal Bowel Sounds, Soft, Abdomen, Obese Extremities: Yes: WNL Edema: No Labs: CBC, BMP 10/24/19 07:15 10/25/19 07:40 - ....Imaging Chest X-ray: Report Reviewed, Image Reviewed Assessment/Plan ASSESSMENT AND PLAN: Acute Hypoxic and Hypercapneic Respiratory Failure resolved Opiate Overdose Pneumonia likely Aspiration improving Polysubstance Abuse Suspected OSAS - antibiotics - O2 to keep Spo2 >90% - aspiration precautions - DVT prophylaxis - Sleep screen - outpatient sleep studies DR BURLESON
[2019-10-26] MEDS ORDERED: DEXTROSE 5%-WATER 100 ML IVPB ONE (08:52)
[2019-10-26] MEDS ORDERED: DEXTROSE 5%-WATER - 50 ML IVPB ONE (08:52)
[2019-10-26] MEDS ORDERED: cefTRIAXone SODIUM 1 GM VIAL ONE (08:52)
[2019-10-26] MEDS ORDERED: DOXYCYCLINE HYCLATE 100 MG VIAL ONE (08:52)
[2019-10-26] MEDS: CEFTRIAXONE 1 GM in DEXTROSE 5%-WATER - 50 ML IVPB SCH (09:12)
[2019-10-26] MEDS: DOXYCYCLINE INJECTION 100 MG in DEXTROSE 5%-WATER 100 ML IVPB SCH (10:52)
[2019-10-26 13:01] LABS: ALBUMIN 3.5 g/dl (3.4-5.0); BILIRUBIN,TOTAL 0.9 mg/dL (0.2-1); BLOOD UREA NITROGEN 13.3 mg/dL (7-18); CREATININE 0.9 mg/dL (0.55-1.3); MAGNESIUM 2.2 mg/dL (1.8-2.4); POTASSIUM 3.7 mmol/L (3.5-5.1)
--- NOTE | 2019-10-26 14:05 | DS ---
Physical Exam: SUBJECTIVE: Patient seen and examined, Chest xray 10/24, improvement, denies sob, cough. pt medically stable for dc pt advised to call insurance and find Pulm for sleep study OBJECTIVE: Vital Signs Period Temp Pulse Resp BP Sys/Roland Pulse Ox Last 24 Hr 97.8 F-99.0 F 68-87 18-20 112-153/76-95 87-100 PHYSICAL EXAM GENERAL: The patient is awake, alert, and fully oriented, in no acute distress. HEAD: Normal with no signs of trauma. EYES: PERRL, extraocular movements intact, sclera anicteric, conjunctiva clear. ENT: Ears normal, nares patent, oropharynx clear without exudates, moist mucous membranes. NECK: Trachea midline, full range of motion, supple. LUNGS: Breath sounds equal, clear to auscultation bilaterally, no wheezes, no crackles, no accessory muscle use. HEART: Regular rate and rhythm, S1, S2 without murmur, rub or gallop. ABDOMEN: Soft, nontender, nondistended, normoactive bowel sounds, no guarding, no rebound, no hepatosplenomegaly, no masses. EXTREMITIES: 2+ pulses, warm, well-perfused, no edema. NEUROLOGICAL: Cranial nerves II through XII grossly intact. Normal speech, gait not observed. PSYCH: Normal mood, normal affect. SKIN: Warm, dry, normal turgor, no rashes or lesions noted. LABS Laboratory Results - last 24 hr 10/25/19 10/25/19 10/26/19 17:17 22:19 06:10 Sodium Potassium Chloride Carbon Dioxide Anion Gap BUN Creatinine Est GFR (CKD-EPI)AfAm Est GFR (CKD-EPI)NonAf POC Glucometer 98 102 95 Random Glucose Calcium Magnesium Total Bilirubin AST ALT Alkaline Phosphatase Total Protein Albumin 10/26/19 10/26/19 11:12 11:47 Sodium 142 Potassium 3.7 Chloride 109 H Carbon Dioxide 27 Anion Gap 7 L BUN 13.3 Creatinine 0.9 Est GFR (CKD-EPI)AfAm 132.37 Est GFR (CKD-EPI)NonAf 114.21 POC Glucometer 120 Random Glucose 110 H Calcium 9.0 Magnesium 2.2 Total Bilirubin 0.9 AST 71 H ALT 68 H Alkaline Phosphatase 77 Total Protein 7.0 Albumin 3.5 HOSPITAL COURSE: Date of Admission:10/23/19 Date of Discharge: 10/26/19 Patient is a 29 year old male with a past medical history of heroin abuse. He w as brought into [facility] on 10/23/2019 with a heroin overdose and was intubated in the ICU for airway protection. In the ED he was given Narcan 0.4mg IV given x2 without improvement. Problem List - Problems (1) Heroin abuse Assessment/Plan: Intubated in the ED for airway protection patient with a history of heroin abuse (smoking) and admitted for heroin overdose. he is refusing rehab or help for his addiction, states he will stop on his own no signs of withdrawal on exam Code(s): F11.10 - OPIOID ABUSE, UNCOMPLICATED (2) Acute resp failure, 2/2 heroin overdose-resolved (3) Aspiration PNA - Pulm following -IV rocephin -changed to PO ceftin -f/u Pulm outpt for sleep study (4) Overdose of opiate or related narcotic Assessment/Plan: addiction medicine following patient refusing rehab referral Code(s): T40.601A - POISONING BY UNSP NARCOTICS, ACCIDENTAL, INIT Qualifiers: Encounter type: initial encounter Injury intent: undetermined intent Qualified Code(s): T40.604A - Poisoning by unspecified narcotics, undetermined, initial encounter (5) DVT prophylaxis Assessment/Plan: ambulation Code(s): Z29.9 - ENCOUNTER FOR PROPHYLACTIC MEASURES, UNSPECIFIED Minutes to complete discharge: 30 Discharge Summary Problems reviewed: Yes Reason For Visit: DRUG OVERDOSE Current Active Problems Apnea for greater than 15 seconds (Acute) DVT prophylaxis (Acute) Heroin abuse (Acute) Overdose of opiate or related narcotic (Acute) Condition: Good - Instructions Diet, Activity, Other Instructions: please follow up with PCP. 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 Critical Care patient: No - Discharge Referral Referred to [facility] Med P.C.: No
[2019-10-26 15:14] VITALS: BP 158/93; PULSE 72; TEMP 98
== END 2019-10-26 15:32 | disposition home or self-care (01) | DRG 812 ==
LOC: JER 15:37 → JERBED 18:49 → J5S 10-24 15:37
PROVIDERS: ADMIT Internal Medicine; ATTEND Nurse Practitioner Family
PROC: 5A1935Z Respiratory Ventilation, Less than 24 Consecutive Hours (ICD-10-PCS; principal; 2019-10-23)
PROC: 0BH17EZ Insertion of Endotracheal Airway into Trachea, Via Natural or Artificial Opening (ICD-10-PCS; 2019-10-23)
DX: T40.2X1A Poisoning by other opioids, accidental (unintentional), initial encounter (principal); J96.01 Acute respiratory failure with hypoxia; J96.02 Acute respiratory failure with hypercapnia; J69.0 Pneumonitis due to inhalation of food and vomit; E66.01 Morbid (severe) obesity due to excess calories; Z68.42 Body mass index [BMI] 45.0-49.9, adult; F11.10 Opioid abuse, uncomplicated; Y92.89 Other specified places as the place of occurrence of the external cause; F14.10 Cocaine abuse, uncomplicated; F12.10 Cannabis abuse, uncomplicated; J98.11 Atelectasis
CPT/HCPCS: 36415; 36600; 70450-TC; 71045-TC-FY; 71046-TC-FY; 80048; 80053; 80307; 81003; 82550; 82553; 82803; 82962; 83036; 83605; 83735; 84100; 84484; 85025; 85027; 87040; 87086; 93005; 93010; 94002; 99291; J1644; U0003

== ENCOUNTER 2020-07-17 06:16 | Day surgery (SDC) | payer OTHER ==
[2020-07-16 12:05] VITALS: BMI 42.5
[2020-07-17] MEDS ORDERED: BUPIVACAINE HCL/PF 2.5 MG/ML - 30 ML VIAL IJ ONE (07:17)
[2020-07-17] MEDS ORDERED: EPINEPHrine/PF 1 MG/1 ML (1:1,000) AMPULE ONE (07:17)
[2020-07-17] MEDS ORDERED: BUPIVACAINE HCL 50 ML ONE (07:27)
[2020-07-17] MEDS ORDERED: DEXAMETHASONE SOD PHOSPHATE 10 MG/1 ML VIAL ONE (07:28)
[2020-07-17] MEDS ORDERED: MIDAZOLAM HCL 2 MG/2 ML SINGLE DOSE VIAL ONE (07:28)
[2020-07-17] MEDS ORDERED: BUPIVACAINE HCL/PF 0.5% (5 MG/ML) 30 ML VIAL IJ ONE (07:29)
[2020-07-17] MEDS ORDERED: PROPOFOL 20 ML ONE (07:30)
[2020-07-17] MEDS ORDERED: EPINEPHrine 1:1,000 1 MG/1 ML - 30ML VIAL (INJECTION) ONE (07:40)
[2020-07-17] MEDS ORDERED: ceFAZolin SODIUM 1 GM VIAL ONE ×2 (08:07→08:08)
[2020-07-17] MEDS ORDERED: TRANEXAMIC ACID 1000 MG/10 ML VIAL ONE (08:07)
[2020-07-17] MEDS ORDERED: ONDANSETRON 4 MG/2 ML VIAL ONE (08:11)
[2020-07-17] MEDS ORDERED: DEXAMETHASONE SOD PHOSPHATE 4 MG/1 ML VIAL ONE (08:11)
[2020-07-17] MEDS ORDERED: ONDANSETRON 4 MG/2 ML VIAL IVPUSH PRN (10:48)
[2020-07-17] MEDS ORDERED: oxyCODONE HCL 5 MG TABLET PO PRN ×2 (10:51)
[2020-07-17] MEDS ORDERED: ACETAMINOPHEN INJECTION 100 ML IVPB ONE (10:55)
[2020-07-17] MEDS: ACETAMINOPHEN 1000 MG/100 ML VIAL (NON FORMULARY) IVPB SCH ×3 (11:10→22:19)
[2020-07-17] MEDS: KETOROLAC TROMETHAMINE 30 MG/1 ML VIAL IVPUSH ONE (11:30)
[2020-07-17] MEDS ORDERED: KETOROLAC TROMETHAMINE 30 MG/1 ML VIAL ONE (11:31)
[2020-07-17] MEDS ORDERED: oxyCODONE HCL 5 MG TABLET ONE (11:31)
[2020-07-17] MEDS: LACTATED RINGERS SOLUTION 1,000 ML IV SCH (12:00)
[2020-07-17] MEDS: KETOROLAC TROMETHAMINE 15 MG/ML VIAL IVPUSH PRN ×2 (17:15→23:23)
[2020-07-18] MEDS: ACETAMINOPHEN 1000 MG/100 ML VIAL (NON FORMULARY) IVPB SCH ×3 (06:05→10:56)
[2020-07-18] MEDS ORDERED: LEVOTHYROXINE NA 25 MCG TABLET (FP) PO SCH (07:00)
[2020-07-18] MEDS: KETOROLAC TROMETHAMINE 30 MG/1 ML VIAL IVPUSH ONE (07:31)
[2020-07-18] MEDS: LACTATED RINGERS SOLUTION 1,000 ML IV SCH (10:56)
[2020-07-18 14:07] VITALS: BP 140/60; PULSE 80; TEMP 98.5
== END 2020-07-18 14:55 | disposition home or self-care (01) ==
LOC: FASU 06:16 → FASUSAT 06:16 → SUATTDRO 06:16 → FM/S 12:41 → FASUSAT 07-18 14:55
PROVIDERS: ATTEND Nurse Practitioner Family
PROC: 0SBD4ZZ Excision of Left Knee Joint, Percutaneous Endoscopic Approach (ICD-10-PCS; 2020-07-17)
PROC: 0MRP47Z Replacement of Left Knee Bursa and Ligament with Autologous Tissue Substitute, Percutaneous Endoscopic Approach (ICD-10-PCS; principal; 2020-07-17 07:30)
PROC: 0LBR0ZZ Excision of Left Knee Tendon, Open Approach (ICD-10-PCS; 2020-07-17 07:30)
PROC: 0SBD4ZZ Excision of Left Knee Joint, Percutaneous Endoscopic Approach (ICD-10-PCS; 2020-07-17 07:30)
DX: S83.512A Sprain of anterior cruciate ligament of left knee, initial encounter (principal); S83.242A Other tear of medial meniscus, current injury, left knee, initial encounter; M23.42 Loose body in knee, left knee; M22.42 Chondromalacia patellae, left knee; M65.9 Synovitis and tenosynovitis, unspecified; X58.XXXA Exposure to other specified factors, initial encounter; Y93.9 Activity, unspecified; Y92.9 Unspecified place or not applicable
CPT/HCPCS: 29876; 29881; 29888; C1713; 76000-TC-FY; 88304-TC; 94660; 94760; 97116-GP; 97161-GP; J0131; J1100

== ENCOUNTER 2023-05-19 06:25 | Day surgery (SDC) | payer OTHER ==
[2023-05-12 14:07] VITALS: BMI 38.5
[2023-05-19] MEDS ORDERED: CEFAZOLIN SODIUM 2 GM in DEXTROSE 5%-WATER 100 ML IVPB ONE (06:40)
[2023-05-19] MEDS ORDERED: oxyCODONE HCL 5 MG TABLET PO PRN (07:10)
[2023-05-19] MEDS ORDERED: ACETAMINOPHEN 325 MG TABLET (FP) PO PRN (07:10)
[2023-05-19] MEDS ORDERED: EPINEPHrine 1:1,000 1,000 MCG/ML ML ONE (07:12)
[2023-05-19] MEDS ORDERED: LACTATED RINGERS SOLUTION 1,000 ML IV SCH (07:15)
[2023-05-19] MEDS ORDERED: BUPIVACAINE HCL/PF 0.25% (2.5MG/ML) 10 ML VIAL ONE (07:23)
[2023-05-19] MEDS ORDERED: VANCOMYCIN 1,000 MG VIAL (RESTRICTED TO ID ONLY) ONE (07:23)
[2023-05-19] MEDS ORDERED: MIDAZOLAM HCL 2 MG/2 ML SINGLE DOSE VIAL ONE ×2 (07:25→08:11)
[2023-05-19] MEDS ORDERED: BUPIVACAINE HCL/PF 0.5% (5MG/ML) 10 ML VIAL ONE (07:25)
[2023-05-19] MEDS ORDERED: ACETAMINOPHEN INJECTION 100 ML IVPB ONE (07:25)
[2023-05-19] MEDS ORDERED: DEXAMETHASONE SOD PHOSPHATE/PF 10 MG/ML SDV ONE (07:25)
[2023-05-19] MEDS ORDERED: PROPOFOL 20 ML ONE ×2 (08:11→09:11)
[2023-05-19] MEDS ORDERED: TRANEXAMIC ACID 1000 MG/10 ML VIAL ONE (08:41)
[2023-05-19] MEDS ORDERED: ePHEDrine SULFATE 50 MG/1 ML AMPULE ONE (09:20)
[2023-05-19] MEDS ORDERED: SODIUM CHLORIDE 0.9% P/F 10 ML VIAL IJ ONE (09:21)
[2023-05-19] MEDS ORDERED: ONDANSETRON 4 MG/2 ML VIAL ONE ×2 (09:34→11:28)
[2023-05-19] MEDS ORDERED: KETOROLAC TROMETHAMINE 30 MG/1 ML VIAL ONE (09:34)
[2023-05-19] MEDS ORDERED: DEXAMETHASONE SOD PHOSPHATE 4 MG/1 ML VIAL ONE (09:34)
[2023-05-19] MEDS ORDERED: FENTANYL CITRATE/PF 50 MCG/ML VIAL ONE (11:28)
[2023-05-19] MEDS: ONDANSETRON 4 MG/2 ML VIAL IVPUSH PRN (11:32)
[2023-05-19] MEDS ORDERED: oxyCODONE HCL 5 MG TABLET ONE ×2 (11:41→12:21)
[2023-05-19] MEDS: oxyCODONE HCL 5 MG TABLET PO PRN (11:43)
[2023-05-19 12:36] VITALS: RESP 19; TEMP 97.1
[2023-05-19 13:15] VITALS: BP 104/64; PULSE 82
== END 2023-05-19 13:42 | disposition home or self-care (01) ==
LOC: FASU 06:25
PROVIDERS: ATTEND Orthopaedic Surgery Sports Medicine
PROC: 0MQP4ZZ Repair Left Knee Bursa and Ligament, Percutaneous Endoscopic Approach (ICD-10-PCS; principal; 2023-05-19 08:41)
PROC: 0SBD4ZZ Excision of Left Knee Joint, Percutaneous Endoscopic Approach (ICD-10-PCS; 2023-05-19 08:41)
DX: S83.512A Sprain of anterior cruciate ligament of left knee, initial encounter (principal); S83.242A Other tear of medial meniscus, current injury, left knee, initial encounter; X58.XXXA Exposure to other specified factors, initial encounter; Y93.9 Activity, unspecified; Y92.9 Unspecified place or not applicable
CPT/HCPCS: 94760; C1713; J0131